=== PATIENT | male | born 1970 | race Caucasian/White ===

== ENCOUNTER → 2017-04-24 13:48 | Outpatient (CLI) | payer MEDICARE, SELFPAY ==
--- NOTE | 2017-04-24 13:52 | US_ITS ---
STUDY: SCROTUM ULTRASOUND REASON FOR EXAM: Male, 46 years old. Right pain and swelling TECHNIQUE: Ultrasound evaluation of the scrotum was performed with color Doppler and static carrillo-scale imaging. COMPARISON: None. FINDINGS: RIGHT TESTICLE INTRATESTICULAR: There is a normal size of the right testicle. The right testicle measures 4.8 x 2.8 x 2.3 cm. There is a homogenous echotexture. There is normal arterial and normal venous vascularity. There is no demonstrated right testicular mass or cyst. EXTRATESTICULAR: The epididymis is normal in size. There is normal vascularity of the epididymis. There is no demonstrated epididymal cystic structure. There is a right-sided hydrocele. There is no demonstrated varicocele. There is no demonstrated extratesticular mass or cyst. LEFT TESTICLE INTRATESTICULAR: There is a normal size of the left testicle. The left testicle measures 4.8 x 2.6 x 2.1 cm. There is a homogenous echotexture. There is normal arterial and normal venous vascularity. There is no demonstrated left testicular mass or cyst. EXTRATESTICULAR: The epididymis is normal in size. There is normal vascularity of the epididymis. There is no demonstrated epididymal cystic structure. There is no demonstrated hydrocele. There is no demonstrated varicocele. There is no demonstrated extratesticular mass or cyst. US/Testicular with Arterial Flow IMPRESSION: Right-sided hydrocele. Electronically Signed: Flores Cruz MD at 15:49 EST Tel , Service support ,
== END ==
PROVIDERS: Family Provider Family Medicine; PCP Family Medicine; Visit Provider Family Medicine
DX: N43.3 Hydrocele, unspecified (principal)
CPT/HCPCS: 76870; 93976

== ENCOUNTER → 2017-05-29 13:05 | Outpatient (CLI) | payer MEDICARE, SELFPAY ==
[2017-05-29 15:53] LABS: Absolute Lymphocyte Count 3.03 X10^3/ul (0.83-4.51); Absolute Neutrophil Count 6.8 X10^3/uL (2.0-7.7); Basophil# 0.05 X10^3/uL; Basophil% 0.4 % (0-1); Eosinophil# 0.83 X10^3/uL; Eosinophils% 7.2 % (0-5); Hematocrit 44.8 % (40-54); Hemoglobin 15.3 g/dl (13.0-16.5); Lymphocyte # 3.03 X10^3/ul (4.0); Lymphocyte % 26.4 % (19-41); Mean Corp Hgb Conc 34.2 g/gl (32-36); Mean Corpuscular Hgb 30.7 pg (27.0-32.0); Mean Corpuscular Volume 89.8 fL (80-94); Mean Platelet Vol. 11.2 fl (6.2-12.0); Monocyte# 0.74 X10^3/uL; Monocyte% 6.5 % (0-10); Neutrophil # 6.76 X10^3/uL (2.7-7.7); Platelet Count 311 K/mm3 (150-450); RBC Distribution Width CV 13.3 % (11.6-14.6); RBC Distribution Width SD 43.1 fl (35.1-43.9); Red Blood Count 4.99 M/mm3 (4.6-6.2); White Blood Count 11.5 K/mm3 (4.4-11.0)
[2017-05-29 16:01] LABS: POSITIVE COUNT NO; POSITIVE DIFFERENTIAL NO; POSITIVE MORPHOLOGY NO
[2017-05-29 16:06] LABS: Microalbumin:Creatinine Ratio 121.3 mg/g CRE (<30 mg/g CRE)
[2017-05-29 16:19] LABS: AST(SGOT) 28 U/L (15-37); Alanine Aminotransfer ALT/SGPT 56 U/L (16-61); Albumin, Serum 3.8 g/dL (3.2-5.0); Alkaline Phosphatase 59 U/L (45-117); Anion Gap 9 (5-15); BUN 11 mg/dL (7-18); BUN/Creat Ratio 10.3 RATIO (10-20); Calcium,Total 9.2 mg/dL (8.5-10.1); Chloride 104 mmol/L (98-107); Cholesterol 183 mg/dL (200); Creatinine, Serum 1.07 mg/dL (0.70-1.30); EST Glomerular Filtration Rate 79 mL/min (>60); Est Glom Filt Rate - Afr Amer 95 mL/min (>60); Globulin 3.8 g/dL (2.2-4.2); Glucose 158 mg/dL (74-106); Hemoglobin A1c 8.4 % (4.2-6.3); High Density Lipoprotein 32 mg/dL; Protein, Total 7.6 g/dL (6.4-8.2); Sodium Level 139 mmol/L (136-145); Triglycerides 241 mg/dL; Very Low Density Lipoprotein 48 mg/dL (5-40)
== END ==
PROVIDERS: Family Provider Family Medicine; PCP Family Medicine; Visit Provider Family Medicine
DX: E11.9 Type 2 diabetes mellitus without complications (principal); I25.10 Atherosclerotic heart disease of native coronary artery without angina pectoris; I10 Essential (primary) hypertension; E78.5 Hyperlipidemia, unspecified
CPT/HCPCS: 36415; 80053; 80061; 82043; 82570; 83036; 85025

== ENCOUNTER 2017-05-31 12:49 | Outpatient (RCR) | payer MEDICARE, SELFPAY | END 2017-06-03 23:59 | LOC: DC 12:49 | PROVIDERS: Family Provider Family Medicine; PCP Family Medicine; Visit Provider Family Medicine | DX: E11.9 Type 2 diabetes mellitus without complications (principal); E66.01 Morbid (severe) obesity due to excess calories; Z68.41 Body mass index [BMI] 40.0-44.9, adult; Z71.3 Dietary counseling and surveillance | CPT/HCPCS: G0108 ==

== ENCOUNTER 2017-06-06 15:37 | Outpatient (RCR) | payer MEDICARE, SELFPAY | END 2017-06-06 15:38 | LOC: DC 15:37 | PROVIDERS: Family Provider Family Medicine; PCP Family Medicine; Visit Provider Family Medicine | DX: E11.9 Type 2 diabetes mellitus without complications (principal); E66.01 Morbid (severe) obesity due to excess calories; Z68.41 Body mass index [BMI] 40.0-44.9, adult; Z71.3 Dietary counseling and surveillance | CPT/HCPCS: 97802 ==

== ENCOUNTER → 2017-07-10 13:39 | Outpatient (CLI) | payer MEDICARE, SELFPAY ==
--- NOTE | 2017-07-10 13:41 | CT_ITS ---
STUDY: CT CERVICAL SPINE WITH CONTRAST REASON FOR EXAM: Male, 46 years old. Degenerative disc disease. Previous cervical spine surgery. RADIATION DOSAGE (If Supplied By Facility): CTDIvol = ( 29.47 ) mGy, DLP = ( 590.41 ) mGycm TECHNIQUE: High resolution transaxial imaging was performed following intravenous administration of 100CC ml of Isovue 300 contrast material. Sagittal and coronal images were reconstructed. Individualized dose optimization techniques were used for this CT. COMPARISON: None FINDINGS: Normal craniovertebral junction. Normal anterior atlantoaxial articulation. Normal odontoid process. There is straightening of the normal cervical lordosis. Normal vertebral bodies and posterior osseous elements. C2-3: Normal endplates. Normal disc height and morphology. Normal central canal and intervertebral neuroforamina. C3-4: Normal endplates. Normal disc height and morphology. Normal central canal and intervertebral neuroforamina. Postsurgical fusion between C4, C5, and C6, with bony fusion across the disc spaces. Mild narrowing of the right neural foramina at these levels. Mild compromise of the spinal canal without definite compression of the cord. C6-7: Normal endplates. Normal disc height and morphology. Normal central canal and intervertebral neuroforamina. C7-T1: Normal endplates. Normal disc height and morphology. Normal central canal and intervertebral neuroforamina. Normal visualized soft tissue structures. CT/Spine Cervical WITH Contrast IMPRESSION: Postsurgical changes. Mild degenerative changes. No acute abnormalities. Electronically Signed: Aba Vanegas MD at 16:18 EDT , Service support ,
== END ==
PROVIDERS: Family Provider Family Medicine; PCP Family Medicine; Visit Provider Family Medicine
DX: M50.30 Other cervical disc degeneration, unspecified cervical region (principal); M54.12 Radiculopathy, cervical region
CPT/HCPCS: 72126; Q9967

== ENCOUNTER → 2017-09-26 13:07 | Outpatient (CLI) | payer MEDICARE, SELFPAY ==
--- NOTE | 2017-09-26 13:35 | MRI_ITS ---
STUDY: MRI RIGHT KNEE REASON FOR EXAM: Right knee pain, fall 4 months ago, arthroscopy more than 10 years ago. TECHNIQUE: Standardized fat and water weighted pulse sequences were obtained in all 3 orthogonal planes. COMPARISON: None. FINDINGS: There is a small subtle oblique band of signal in the posterior horn of the medial meniscus extending to the inferior articular surface (proton-density sagittal images 11-14), either scarring or small recurrent medial meniscal tear. Normal hyaline cartilage of the medial femorotibial compartment. Normal medial femoral condyle and tibial plateau. Normal medial collateral ligamentous complex (MCL). Normal distal semimembranosus, gracilis and semitendinosus tendons. Normal lateral meniscus. Normal hyaline cartilage of the lateral femorotibial compartment. Normal lateral femoral condyle and tibial plateau. Normal proximal tibiofibular articulation. Normal lateral collateral (fibular) ligament. Normal popliteus tendon. Normal biceps femoris tendon. Normal anterior cruciate ligament (ACL). Normal posterior cruciate ligament (PCL). Normal congruent patellofemoral articulation. Normal hyaline cartilage of the patellofemoral compartment. Normal medial and lateral patellar retinaculum. Normal visualized quadriceps tendon. Normal patellar tendon. Normal Hoffa's fat pad. There is no joint effusion. There is a popliteal cyst (T2 sagittal images 2-6) measuring 3.2 cm in length. The otherwise visualized osseous structures are unremarkable. MRI/Lower Ext Joint Only (Routine) IMPRESSION: Small subtle signal alteration of the posterior horn of the medial meniscus, either scarring or small recurrent medial meniscal tear. Popliteal cyst. No demonstrated lateral meniscal tear. Electronically Signed: Alfred Torrez MD at 15:14 EDT Tel , Service support ,
== END ==
PROVIDERS: Family Provider Family Medicine; PCP Family Medicine; Visit Provider Family Medicine
DX: S83.281A Other tear of lateral meniscus, current injury, right knee, initial encounter (principal); S83.529A Sprain of posterior cruciate ligament of unspecified knee, initial encounter; W19.XXXA Unspecified fall, initial encounter; M71.21 Synovial cyst of popliteal space [Baker], right knee
CPT/HCPCS: 73721

== ENCOUNTER → 2018-03-08 12:51 | Outpatient (CLI) | payer MEDICARE, SELFPAY ==
[2018-03-09 16:08] LABS: Microalbumin,Random Urine 74.4 mg/L (NO RANGE EST.); Microalbumin:Creatinine Ratio 51.7 mg/g CRE (<30 mg/g CRE)
[2018-03-09 16:21] LABS: Absolute Neutrophil Count 7.6 X10^3/uL (2.0-7.7); Basophil# 0.05 X10^3/uL; Basophil% 0.4 % (0-1); Eosinophil# 1.73 X10^3/uL; Eosinophils% 12.4 % (0-5); Hematocrit 46.1 % (40-54); Lymphocyte % 26.5 % (19-41); Mean Corp Hgb Conc 34.7 g/gl (32-36); Mean Corpuscular Hgb 30.9 pg (27.0-32.0); Mean Corpuscular Volume 89.2 fL (80-94); Mean Platelet Vol. 11.2 fl (6.2-12.0); Monocyte# 0.78 X10^3/uL; Monocyte% 5.6 % (0-10); Neutrophil # 7.64 X10^3/uL (2.7-7.7); Neutrophil % 54.7 % (47-70); Platelet Count 285 K/mm3 (150-450); RBC Distribution Width CV 13.4 % (11.6-14.6); Red Blood Count 5.17 M/mm3 (4.6-6.2)
[2018-03-09 16:24] LABS: AST(SGOT) 23 U/L (15-37); Alanine Aminotransfer ALT/SGPT 43 U/L (16-61); Albumin, Serum 3.8 g/dL (3.2-5.0); Alkaline Phosphatase 79 U/L (45-117); Anion Gap 11 (5-15); BUN 8 mg/dL (7-18); BUN/Creat Ratio 7.9 RATIO (10-20); Calcium,Total 8.8 mg/dL (8.5-10.1); Chloride 103 mmol/L (98-107); Creatinine, Serum 1.01 mg/dL (0.70-1.30); EST Glomerular Filtration Rate 84 mL/min (>60); Est Glom Filt Rate - Afr Amer 101 mL/min (>60); Globulin 3.7 g/dL (2.2-4.2); Glucose 230 mg/dL (74-106); Potassium 3.9 mmol/L (3.5-5.1); Protein, Total 7.5 g/dL (6.4-8.2); Sodium Level 137 mmol/L (136-145)
[2018-03-09 16:25] LABS: POSITIVE COUNT NO; POSITIVE DIFFERENTIAL NO; POSITIVE MORPHOLOGY NO
[2018-03-09 17:14] LABS: Hemoglobin A1c 8.8 % (4.2-6.3)
== END ==
PROVIDERS: Family Provider Family Medicine; PCP Family Medicine; Visit Provider Family Medicine
DX: E11.21 Type 2 diabetes mellitus with diabetic nephropathy (principal); I10 Essential (primary) hypertension; E78.5 Hyperlipidemia, unspecified; F11.90 Opioid use, unspecified, uncomplicated; Z51.81 Encounter for therapeutic drug level monitoring
CPT/HCPCS: 36415; 80053; 82043; 82570; 83036; 85025

== ENCOUNTER → 2018-03-16 13:33 | Outpatient (CLI) | payer MEDICARE, SELFPAY ==
[2018-03-20 09:09] LABS: Testosterone, Free 8.55 ng/dL (5.00-21.00)
[2018-03-22 09:24] LABS: Testosterone, % Free 2.43 % (1.50-4.20); Testosterone, Total 352 ng/dL (264-916)
== END ==
PROVIDERS: Family Provider Family Medicine; PCP Family Medicine; Visit Provider Family Medicine
DX: E29.1 Testicular hypofunction (principal)
CPT/HCPCS: 36415; 84402; 84403

== ENCOUNTER → 2018-10-12 06:36 | Outpatient (CLI) | payer MEDICARE, SELFPAY ==
--- NOTE | 2018-10-12 09:07 | STRESSREP ---
Stress Test Report Date: 10-12-18 Procedure: Pharmacologic stress nuclear imaging study Indications: Shortness of breath/dyspnea Consent: Per the patient Procedure: The patient underwent pharmacologic (Regadenoson) evaluation with a peak heart rate of 87 beats per minute (50 %predicted maximal heart rate) and a peak blood pressure of 178/90 mmHg. The baseline ECG demonstrated normal sinus rhythm. The peak pharmacologic ECG demonstrated no obvious ECG changes. There were no cardiac dysrhythmias pretest, during pharmacologic infusion, or recovery. There was no complaint of chest discomfort during pharmacologic infusion or recovery. The examination was discontinued secondary to completion of protocol. Impression: 1. Pharmacologic (Regadenoson) evaluation 2. Peak pharmacologic ECG with no obvious ECG changes. 3. There were no cardiac dysrhythmias pretest, during pharmacologic infusion, or recovery. 4. Nuclear images pending Myocardial perfusion imaging study: Technique: The patient was injected with 15.0 millicuries of technetium 99m Cardiolite and subsequently rest SPECT Cardiolite nuclear imaging was obtained in the horizontal long, vertical long, and short axis views. The patient underwent pharmacologic (Regadenoson) evaluation with a peak heart rate of 87 beats per minute (50 % percent predicted maximal heart rate) and a peak blood pressure of 178/90 mmHg. The patient was injected with 45.0 millicuries of technetium 99m Cardiolite and subsequently stress SPECT Cardiolite nuclear imaging was obtained in the horizontal long, vertical long, and short axis views. A gated Cardiolite study at peak stress was obtained. Interpretation: Rest and stress SPECT Cardiolite nuclear imaging status post realignment and normalization (attenuation correction not performed) demonstrate relative uniform tracer uptake and myocardial perfusion appearing within normal limits. There is end systolic thickening and brightening. The gated Cardiolite study demonstrates myocardial thickening and inward wall motion. The reported LVEF is 64 %. Impression: 1. Rest and stress SPECT Cardiolite nuclear imaging demonstrate relative uniform tracer uptake and myocardial perfusion appearing within normal limits. 2. The gated Cardiolite study reports an LVEF of 64 %. This note was generated with hoohbe software. It may contain incorrect words, spelling, and punctuation that were not noted in checking the note before signing.
== END ==
PROVIDERS: Family Provider Family Medicine; PCP Family Medicine; Referring Provider Family Medicine; Visit Provider Family Medicine
DX: R07.89 Other chest pain (principal); E11.9 Type 2 diabetes mellitus without complications; I10 Essential (primary) hypertension; E78.5 Hyperlipidemia, unspecified; I25.10 Atherosclerotic heart disease of native coronary artery without angina pectoris; E66.01 Morbid (severe) obesity due to excess calories
CPT/HCPCS: 78452; 93017; A9500; A4216; J2785

== ENCOUNTER → 2018-12-28 12:52 | Outpatient (CLI) | payer MEDICARE, SELFPAY | PROVIDERS: Family Provider Family Medicine; PCP Family Medicine; Visit Provider Family Medicine | DX: R73.9 Hyperglycemia, unspecified (principal) | CPT/HCPCS: 36415 ==

== ENCOUNTER → 2019-01-04 09:47 | Outpatient (CLI) | payer MEDICARE, SELFPAY ==
--- NOTE | 2019-01-04 09:53 | US_ITS ---
STUDY: ABDOMINAL ULTRASOUND - RIGHT UPPER QUADRANT REASON FOR VISIT: Male, 48 years old hyperglycemia. TECHNIQUE: Ultrasound evaluation of the right upper quadrant was performed with real-time and static carrillo-scale imaging. TECHNICAL QUALITY: Limited. Examination limited due to obesity. COMPARISON: None. FINDINGS: Liver: The liver measures 18.6 cm. There is increased echogenicity consistent with fatty infiltration. The bile ducts are within normal limits. There is hepatic color flow. The direction of portal flow is hepatopetal. There is no demonstrated mass lesion. Gallbladder: The patient is status post cholecystectomy. Common Bile Duct (C.B.D.): The common bile duct measures 3.3 mm. Pancreas: Normal size of the head, body and tail of the pancreas. There is increased echogenicity of the pancreas. There is no demonstrated pancreatic mass or cyst. Right Kidney: Normal size of the right kidney. The right kidney measures 12.8 cm x 6.6 cm x 5 cm. Normal renal cortex. The right cortex measures 1.6 cm. There is no demonstrated renal mass or cyst. There is no right hydronephrosis. US/Abdomen Limited IMPRESSION: Mild hepatomegaly and diffuse fatty infiltration of the liver. Electronically Signed: David Pritchett, at 15:18 EDT , Service support ,
== END ==
PROVIDERS: Family Provider Family Medicine; PCP Family Medicine; Referring Provider Family Medicine; Visit Provider Family Medicine
DX: K76.0 Fatty (change of) liver, not elsewhere classified (principal); R10.9 Unspecified abdominal pain; R73.9 Hyperglycemia, unspecified
CPT/HCPCS: 76705

== ENCOUNTER → 2019-03-18 13:57 | Outpatient (CLI) | payer MEDICARE, SELFPAY ==
[2019-03-18 15:25] LABS: Absolute Lymphocyte Count 3.34 X10^3/uL (0.83-4.51); Absolute Neutrophil Count 8.3 X10^3/uL (2.0-7.7); Basophil% 0.7 % (0-1); Eosinophil# 1.28 X10^3/uL; Eosinophils% 9.2 % (0-5); Hematocrit 46.4 % (40-54); Hemoglobin 15.5 g/dL (13.0-16.5); Lymphocyte # 3.34 X10^3/ul (4.0); Mean Corp Hgb Conc 33.4 g/dL (32-36); Mean Corpuscular Hgb 29.7 pg (27.0-32.0); Mean Corpuscular Volume 88.9 fL (80-94); Mean Platelet Vol. 11.5 fl (6.2-12.0); Monocyte# 0.83 X10^3/uL; NRBC Flagged by Analyzer 0 % (0-5); Neutrophil # 8.27 X10^3/uL (2.7-7.7); Neutrophil % 59.5 % (47-70); Platelet Count 280 K/mm3 (150-450); RBC Distribution Width CV 13.1 % (11.6-14.6); RBC Distribution Width SD 42.4 fl (35.1-43.9); Red Blood Count 5.22 M/mm3 (4.6-6.2); White Blood Count 13.9 K/mm3 (4.4-11.0)
[2019-03-18 16:03] LABS: AST(SGOT) 31 U/L (15-37); Alanine Aminotransfer ALT/SGPT 46 U/L (16-61); Albumin, Serum 3.8 g/dL (3.2-5.0); Alkaline Phosphatase 65 U/L (45-117); Anion Gap 4 (5-15); BUN 6 mg/dL (7-18); BUN/Creat Ratio 6.3 RATIO (10-20); Calcium,Total 9.1 mg/dL (8.5-10.1); Chloride 108 mmol/L (98-107); Cholesterol 204 mg/dL (200); Creatinine, Serum 0.95 mg/dL (0.70-1.30); EST Glomerular Filtration Rate 89 mL/min (>60); Est Glom Filt Rate - Afr Amer 108 mL/min (>60); Globulin 3.8 g/dL (2.2-4.2); Glucose 179 mg/dL (74-106); High Density Lipoprotein 30 mg/dL; Potassium 3.8 mmol/L (3.5-5.1); Protein, Total 7.6 g/dL (6.4-8.2); Sodium Level 137 mmol/L (136-145); Triglycerides 240 mg/dL; Very Low Density Lipoprotein 48 mg/dL (5-40)
[2019-03-18 16:16] LABS: Microalbumin:Creatinine Ratio 94.9 mg/g CRE (<30 mg/g CRE)
== END ==
PROVIDERS: Family Provider Family Medicine; PCP Family Medicine; Visit Provider Family Medicine
DX: E11.21 Type 2 diabetes mellitus with diabetic nephropathy (principal); I25.10 Atherosclerotic heart disease of native coronary artery without angina pectoris; Z51.81 Encounter for therapeutic drug level monitoring
CPT/HCPCS: 36415; 80053; 80061; 82043; 82570; 83036; 85025

== ENCOUNTER → 2019-04-03 15:17 | Outpatient (CLI) | payer MEDICARE, SELFPAY ==
--- NOTE | 2019-04-03 15:34 | MRI_ITS ---
STUDY: MRI CERVICAL SPINE WITHOUT CONTRAST REASON FOR EXAM: Male, 48 years old. RT NEURAL IMPINGEMENT, RADICULOPATHY, C/O PAIN AND TIGHTNESS BILATERAL SHOULDERS TECHNIQUE: Standardized fat and water weighted pulse sequences were obtained in the sagittal and axial planes. COMPARISON: July 10, 2017 FINDINGS: Normal foramen magnum and brainstem-cervical cord junction. Normal craniovertebral junction. Normal anterior atlantoaxial articulation. Normal odontoid process. Normal cervical lordosis. Normal vertebral bodies and posterior osseous elements. C2-3: Normal endplates. Normal disc height, signal and morphology. Normal central canal and intervertebral neural foramina. C3-4: Normal endplates. Normal disc height, signal and morphology. Normal central canal and intervertebral neural foramina. Small posterior disc marginal osteophyte encroaches upon the cord. C4-5: Anterior plate screws and disc spacer. Moderate narrowing of the neural foramen on the right. Central canal left neural foramen patent. C5-6: Anterior plate and screws with disc spacer. Moderate narrowing of the neural foramina bilaterally. Central canal patent. C6-7: Small broad-based posterior disc marginal osteophyte. Severe narrowing left neural foramen due to uncinate spondylosis. Central canal and right neural foramen patent. C7-T1: Normal endplates. Normal disc height, signal and morphology. Normal central canal and intervertebral neural foramina. Normal cervical cord. Normal visualized soft tissue structures. MRI/Spine Cervical (Routine) IMPRESSION: Anterior cervical disc fusion C4-5 and 6. Multilevel neural foraminal narrowing as noted above. Electronically Signed: Eb Daniels MD at 23:58 EST , Service support ,
== END ==
PROVIDERS: Family Provider Family Medicine; PCP Family Medicine; Referring Provider Family Medicine; Visit Provider Family Medicine
DX: M54.12 Radiculopathy, cervical region (principal); M50.30 Other cervical disc degeneration, unspecified cervical region
CPT/HCPCS: 72141

== ENCOUNTER → 2019-09-06 12:34 | Outpatient (CLI) | payer MEDICARE, SELFPAY ==
--- NOTE | 2019-09-06 13:04 | RAD_ITS ---
STUDY: X-RAY - LUMBAR SPINE REASON FOR EXAM: Male, 48 years old. FELL/RT FOOT DROP/PREV LUMBAR FUSION TECHNIQUE: 3 view(s) of the lumbar spine were obtained. COMPARISON: None FINDINGS: Normal lumbar lordosis. There is no substantial scoliosis. There is a normal alignment of the vertebrae. The patient is status post anterior and posterior spinal fusion at the L2-3 level with placement of an intervertebral disc cage device as well as posterior internal fixation rods and pedicle screws. Hardware appears to be intact without evidence for loosening. There is no visualized continuous bone growth across the disc space. There is a laminectomy defect at the L2 level. There is a posterior interspinous spacer device at the L1-2 level. Disc space heights are intact at the nonfused levels. There are multilevel degenerative changes of the facet joints. There is atherosclerotic calcification of the abdominal aorta without a demonstrated aneurysm. RAD/Lumbar Spine 2 or 3 Views IMPRESSION: Intact fixation hardware, as above. No visualized bone growth the L2-3 disc space to indicate successful fusion at this time. Mild multilevel degenerative changes of facet joints. Electronically Signed: Gil Muñoz MD at 7:53 EDT , Service support ,
== END ==
PROVIDERS: PCP Family Medicine; Visit Provider Family Medicine
DX: M21.371 Foot drop, right foot (principal)
CPT/HCPCS: 72100

== ENCOUNTER → 2019-09-25 13:41 | Outpatient (CLI) | payer MEDICARE, MEDICAID, SELFPAY ==
--- NOTE | 2019-09-25 13:45 | ART_ITS ---
Reason For Study: RLE PAIN (5TH TOE & GREAT TOE DISCOLORED) Procedure A bilateral lower extremity continuous wave Doppler with analog waveform analysis,segmental pressures,and ankle brachial indexes without exercise. Left Segmental Pressures Left brachial= 157mmHg. Left posterior tibial artery = 172mmHg. Left dorsalis pedis artery = 154mmHg. Left digit = 210 mmHg. The left posterior tibial artery waveforms are triphasic. The left dorsalis pedis waveforms are triphasic. Right Segmental Pressures Right brachial= 138mmHg. Right thigh = 165mmHg. Right calf = 85mmHg. Right posterior tibial artery = 88mmHg. Right dorsalis pedis artery = 99mmHg. Right digit = 94 mmHg. The right posterior tibial artery waveforms are monophasic. The right dorsalis pedis waveforms are monophasic. Indices The right resting ankle brachial index is 0.63. The right ankle brachial index by the dorsalis pedis is 0.63. The right ankle brachial index by the posterior tibial artery is 0.56. The right digital- brachial index is 0.60. The left resting ankle brachial index is 1.10. The left ankle brachial index by the dorsalis pedis is 0.98. The left ankle brachial index by the posterior tibial artery is 1.10. The left digital-brachial index is 1.34. Interpretation Summary Moderately severe right lower extremity arterial occlusive disease based upon ankle-brachial indices. Right posterior tibial and dorsalis pedis monophasic Doppler waveforms consistent with a more severe level disease. Indices and waveform findings would suggest severe disease/occlusion of the superficial femoral artery Normal resting left PT and DP ankle-brachial indices. Normal left lower extremity triphasic posterior tibial and dorsalis pedis Doppler waveforms Ordering Physician: Trell Frank Referring Physician: Trell Frank Performed By: Ev Saunders RVT, RDCS and Student
== END ==
PROVIDERS: PCP Family Medicine; Referring Provider Family Medicine; Visit Provider Family Medicine
DX: I96 Gangrene, not elsewhere classified (principal)
CPT/HCPCS: 93923

== ENCOUNTER → 2019-10-11 09:25 | Outpatient (CLI) | payer MEDICARE, MEDICAID, SELFPAY ==
--- NOTE | 2019-10-11 09:33 | ADUL_ITS ---
Reason For Study: ATHEROSCLEROSIS Right Velocities Ext. Iliac Artery, dist = 168.1 cm./sec. Common Femoral Artery, mid = 144.0 cm./sec. Supf Femoral Artery, prox = 95.3 cm./sec. Supf Femoral Artery, mid = 42.4 cm./sec. Supf Femoral Artery, mid to distal = 353.7 cm./sec. Supf Femoral Artery, dist. = 33.9 cm./sec. Profunda Femoral Artery = 84.3 cm./sec. Popliteal Artery, prox. = 31.7 cm./sec. Popliteal Artery, mid = 33.7 cm./sec. Popliteal Artery, dist = 30.2 cm./sec. Post. Tibial Artery, prox = 44.4 cm./sec. Post. Tibial Artery, mid = 33.9 cm./sec. Post. Tibial Artery, dist = 43.5 cm./sec. Peroneal Artery, prox = 16.1 cm./sec. Peroneal Artery, mid = 33.2 cm./sec. Peroneal Artery,dist = 14.5 cm./sec. Ant. Tibial Artery, prox = 41.2 cm./sec. Ant. Tibial Artery, mid = 36.2 cm./sec. Ant. Tibial Artery, dist = 42.6 cm./sec. Procedure The exam was diagnostic. Exam performed in department. Interpretation Summary Right femoral artery with a severe stenosis. Ordering Physician: Wyatt Castillo Referring Physician: Hilario Garcia Performed By: Ev Saunders, RDCS, RVT
--- NOTE | 2019-10-11 09:34 | ART_ITS ---
Reason For Study: ATHEROSCLEROSIS Procedure A bilateral lower extremity continuous wave Doppler with analog waveform analysis and ankle brachial indexes. Left Segmental Pressures Left brachial= 171mmHg. Left posterior tibial artery = 189mmHg. Left dorsalis pedis artery = 155mmHg. Left digit = >255 mmHg. The left posterior tibial artery waveforms are triphasic. The left dorsalis pedis waveforms are triphasic. Right Segmental Pressures Right brachial= 159mmHg. Right posterior tibial artery = 117mmHg. Right dorsalis pedis artery = 113mmHg. Right digit = 45 mmHg. The right posterior tibial artery waveforms are monophasic. The right dorsalis pedis waveforms are monophasic. Indices The right ankle brachial index by the dorsalis pedis is 0.66. The right ankle brachial index by the posterior tibial artery is 0.68. The right digital-brachial index is 0.26. The left ankle brachial index by the dorsalis pedis is 1.11. The left ankle brachial index by the posterior tibial artery is 0.91. The left digital-brachial index is N/C. Interpretation Summary Right leg monophic and moderate disease with ROBERTO 0.68 and left normal triphasic with ROBERTO 1.11. Right DBI 0.26 and left NC. Ordering Physician: Wyatt Castillo Referring Physician: Wyatt Castillo Performed By: Ev Saunders RVT, RDCS
== END ==
PROVIDERS: PCP Family Medicine; Referring Provider Surgery Vascular Surgery; Visit Provider Surgery Vascular Surgery
DX: I70.235 Atherosclerosis of native arteries of right leg with ulceration of other part of foot (principal); I70.213 Atherosclerosis of native arteries of extremities with intermittent claudication, bilateral legs; E78.00 Pure hypercholesterolemia, unspecified; I11.9 Hypertensive heart disease without heart failure; I20.9 Angina pectoris, unspecified; E11.9 Type 2 diabetes mellitus without complications; J45.909 Unspecified asthma, uncomplicated; M19.90 Unspecified osteoarthritis, unspecified site
CPT/HCPCS: 93922; 93926

== ENCOUNTER 2019-11-20 06:27 | Day surgery (SDC) | payer MEDICARE, MEDICAID, SELFPAY ==
[2019-11-20 06:39] LABS: Hematocrit 46.5 % (40-54); Hemoglobin 15.7 g/dL (13.0-16.5); Mean Corp Hgb Conc 33.8 g/dL (32-36); Mean Corpuscular Hgb 30.5 pg (27.0-32.0); Mean Corpuscular Volume 90.3 fL (80-94); Platelet Count 284 K/mm3 (150-450); RBC Distribution Width CV 13.4 % (11.6-14.6); RBC Distribution Width SD 44.1 fl (35.1-43.9); Red Blood Count 5.15 M/mm3 (4.6-6.2); White Blood Count 16.4 K/mm3 (4.4-11.0)
[2019-11-20 06:53] LABS: Albumin, Serum 3.6 g/dL (3.2-5.0); BUN 9 mg/dL (7-18); BUN/Creat Ratio 8.3 RATIO (10-20); Calcium,Total 9.4 mg/dL (8.5-10.1); Chloride 107 mmol/L (98-107); Creatinine, Serum 1.08 mg/dL (0.70-1.30); EST Glomerular Filtration Rate 77 mL/min (>60); Est Glom Filt Rate - Afr Amer 93 mL/min (>60); Estimated Creatinine Clearance 137.55 ml/min; Glucose 303 mg/dL (74-106); Phosphorus 4.1 mg/dL (2.5-4.9); Sodium Level 138 mmol/L (136-145)
--- NOTE | 2019-11-20 08:45 | PCM.OPRPT ---
Problem List (1) PAD (peripheral artery disease) Status: Acute Report of Operation Date of Procedure: 11/20/19 Pre-Operative Diagnosis: PAD with right femoral stenosis Post-Operative Diagnosis: Same Surgery/Procedure Performed:: 1. Left ultrasound-guided access common femoral artery. 2. Right lower extremity angiogram with catheter placed into the popliteal artery. 3. Balloon angioplasty right adductor with a 5 drug-coated balloon and then stented with a 6 x 60 stent and post balloon with a 5 mm balloon. 4. Closure with Star close Type of Anesthesia:: Sedation,Conscious Description of Procedure: Patient brought to the [employer] [facility]. Underwent appropriate timeout consent. Underwent sedation. Prepped and draped in a sterile fashion. We did ultrasound-guided access retrograde retrograde left common femoral artery. Put a Glidewire up in a 5 Macedonian sheath. A 5000 units of heparin. We got up and over the bifurcation did an angiogram from the right external iliac artery. We then put a wire and catheter down the leg and did an angiogram from there. These both showed that the common femoral artery, the profunda, and the femoral artery were widely patent. The distal femoral at the adductor into the popliteal with a severe stenosis over 90%. The rest of the popliteal and all 3 tibials were patent into the foot. We got a Glidewire across the lesion and brought in a longer 6 Macedonian sheath. We first ballooned this with a 5 x 60 drug-coated balloon but there is a dissection and appear to be a little flow-limiting. We then ballooned a little further up with a 5 x 120 balloon not over inflating but still some limited flow through this area. We elected to stent with a 6 x 60 mm post balloon with a 5 mm balloon. Is much improved with brisk flow through here. We then removed out the sheath deployed a Star close with good hemostasis brought to recovery stable condition. Sedation: This 49-year-old gentleman underwent moderate sedation given by Dr. Wyatt Castillo. He was monitored EKG blood pressure and pulse ox for over the 30 minutes of the procedure. See the EMR for the complete record.
== END 2019-11-20 12:55 | disposition home or self-care (01) ==
PROVIDERS: PCP Family Medicine; Referring Provider Surgery Vascular Surgery; Visit Provider Surgery Vascular Surgery
DX: I70.235 Atherosclerosis of native arteries of right leg with ulceration of other part of foot (principal); I70.213 Atherosclerosis of native arteries of extremities with intermittent claudication, bilateral legs; I11.9 Hypertensive heart disease without heart failure; I20.9 Angina pectoris, unspecified; E78.00 Pure hypercholesterolemia, unspecified; E11.51 Type 2 diabetes mellitus with diabetic peripheral angiopathy without gangrene; J45.909 Unspecified asthma, uncomplicated; M19.90 Unspecified osteoarthritis, unspecified site; Z79.4 Long term (current) use of insulin; Z79.899 Other long term (current) drug therapy; Z87.891 Personal history of nicotine dependence
CPT/HCPCS: 36245; 36415; 37226; 75710; 76937; 80069; 85027; 99152; 99153; J7040; Q9967; C1725; C1760; C1769; C1876; C1887; C1894

== ENCOUNTER → 2020-09-10 12:35 | Outpatient (CLI) | payer MEDICARE, MEDICAID, SELFPAY ==
[2020-09-10 13:39] LABS: Absolute Lymphocyte Count 3.56 X10^3/uL (0.83-4.51); Absolute Neutrophil Count 6.2 X10^3/uL (2.0-7.7); Basophil# 0.07 X10^3/uL; Basophil% 0.6 % (0-1); Eosinophil# 0.91 X10^3/uL; Hematocrit 48.4 % (40-54); Hemoglobin 15.8 g/dL (13.0-16.5); Lymphocyte # 3.56 X10^3/ul (0.83-4.51); Lymphocyte % 31.1 % (19-41); Mean Corp Hgb Conc 32.6 g/dL (32-36); Mean Corpuscular Hgb 29.5 pg (27.0-32.0); Mean Corpuscular Volume 90.5 fL (80-94); Mean Platelet Vol. 10.6 fl (6.2-12.0); Monocyte# 0.69 X10^3/uL; NRBC Flagged by Analyzer 0 % (0-5); Neutrophil # 6.15 X10^3/uL (2.7-7.7); Neutrophil % 53.9 % (47-70); Platelet Count 312 K/mm3 (150-450); RBC Distribution Width CV 14.3 % (11.6-14.6); RBC Distribution Width SD 47.3 fl (35.1-43.9); Red Blood Count 5.35 M/mm3 (4.6-6.2); White Blood Count 11.4 K/mm3 (4.4-11.0)
[2020-09-10 14:01] LABS: Microalbumin,Random Urine 35.7 mg/L (NO RANGE EST.); Microalbumin:Creatinine Ratio 74.4 mg/g CRE (<30 mg/g CRE)
[2020-09-10 14:05] LABS: ALB/GLOB Ratio 1.1 RATIO (0.9-2.4); AST(SGOT) 17 U/L (15-37); Alanine Aminotransfer ALT/SGPT 30 U/L (16-61); Albumin, Serum 3.7 g/dL (3.2-5.0); Alkaline Phosphatase 59 U/L (45-117); Anion Gap 8 (5-15); BUN 7 mg/dL (7-18); BUN/Creat Ratio 6.6 RATIO (10-20); Calcium,Total 8.6 mg/dL (8.5-10.1); Chloride 105 mmol/L (98-107); Cholesterol 142 mg/dL (200); Creatinine, Serum 1.06 mg/dL (0.70-1.30); EST Glomerular Filtration Rate 78 mL/min (>60); Est Glom Filt Rate - Afr Amer 95 mL/min (>60); Globulin 3.5 g/dL (2.2-4.2); Glucose 189 mg/dL (74-106); High Density Lipoprotein 28 mg/dL; Protein, Total 7.2 g/dL (6.4-8.2); Sodium Level 139 mmol/L (136-145); Triglycerides 192 mg/dL; Very Low Density Lipoprotein 38 mg/dL (5-40)
[2020-09-10 14:21] LABS: Hemoglobin A1c 7.6 % (3.8-5.6)
== END ==
PROVIDERS: PCP Family Medicine; Referring Provider Family Medicine; Visit Provider Family Medicine
DX: E11.21 Type 2 diabetes mellitus with diabetic nephropathy (principal); I25.10 Atherosclerotic heart disease of native coronary artery without angina pectoris; E78.5 Hyperlipidemia, unspecified; I10 Essential (primary) hypertension
CPT/HCPCS: 36415; 80053; 80061; 82043; 82570; 83036; 85025

== ENCOUNTER 2020-10-15 10:17 | Day surgery (SDC) | payer MEDICARE, MEDICAID, SELFPAY ==
[2020-10-15] VITALS (7 sets, daily range): BP systolic 139–153; BP diastolic 86–96; PULSE 57–83; RESP 16–18; TEMP 36.1–36.4; O2SAT 95–97; BMI 35.6
--- NOTE | 2020-10-15 10:58 | HP.PCM_ITS ---
History and Physical Date of Admission: 10/15/20 Date of Service: 10/07/20 Intake Vital Signs 10/07/20 13:39 10/07/20 13:42 Height 5 ft 10 in Weight: 248 lb BMI 35.6 0.2 BP 177/99 H Blood Pressure Location Rt brachial Position Sitting Respiration 18 Intake Visit Reasons: CSCOPE Chief Complaint: c-scope Sorority Mother Required: No Is patient in pain?: No Allergies No Known Allergies Allergy (Verified 10/07/20 13:40) [facility] Medical History (Updated 10/07/20 @ 14:[address] Monae Mcmahon MD) Cervical radiculopathy Chronic pain syndrome COPD (chronic obstructive pulmonary disease) Coronary arteriosclerosis Degeneration of cervical intervertebral disc Depression Failed back syndrome, lumbar HTN (hypertension) Hyperlipidemia Low testosterone Morbid obesity Myocardial infarction ARAM (obstructive sleep apnea) Osteoarthritis of right knee Pulmonary nodules Right hydrocele S/P arteriogram of extremity Tobacco use Type 2 diabetes mellitus with diabetic neuropathy Surgical History H/O neck surgery Previous back surgery Family History Father Heart disease Hypertension Hyperlipidemia Social History Smoking Status: Current every day smoker HPI HPI HPI: ENRIQUETA CASTELLANOS, is a 50 M who presents to the office today for colonoscopy due to bright red blood per rectum. Patient states he had this about a month ago for 2 to 3 days. Patient states that was red denies any black stools. Denies any history of previous episodes. Patient states his stool is soft denies any constipation. Patient does not know his family history. Patient denies any pain with bowel movements. Patient deferred KHANG at PCPs office thus he was referred for colonoscopy, no previous colonoscopy. ROS General General: Yes weight change; No appetite, fatigue, colon cancer, breast cancer or weakness HEENT HEENT: No difficulty swallowing, eye injury, eye surgery, swollen glands or hoarseness Endo Endocrine: Yes diabetes mellitus; No thyroid disease, thyroid cancer, Hair loss, heat intolerance or cold intolerance Skin Skin: No rash or changing moles Breast Breast: No left breast lump, right breast lump, nipple discharge, breast pain, abnormal mammogram, abnormal US or breast enlargement Musc Musculoskeletal: Yes back problems; No arthritis, rheumatoid arthritis, gout or joint pain Cardio Cardiovascular: Yes high blood pressure; No murmur, pacemaker, heart disease, atrial fibrillation, heart attack, heart stent, palpitations, shortness of breat with exertion or chest pain Psych Psychiatric: No depression, anxiety or hearing voices Resp Respiratory: No shortness of breath, Yes sleep apnea, No cough, No COPD, Yes asthma, No emphysema and No wheezing Gastro Gastrointestinal: No abdominal pain, No nausea or vomiting, No diarrhea, No constipation, Yes blood in stool, Yes acid reflux, No hemorrhoids, No ulcers, Yes gallbladder problem and No black,tarry stools Ceferino Hematologic: Yes blood thinners, No blood disorders, Yes bleeding, No anemia and Yes blood clots Neuro Neurologic: No system reviewed and no additional complaints, except as documented, No as per HPI, No abnormal gait, No abnormal hearing, No abnormal movements, No abnormal speech, No behavioral changes, No burning sensations, No confusion, No convulsions, No disequilibrium, No dizziness, No localized weakness, No frequent falls, No headache(s), No lack of coordination, No loss of vision, No memory loss, No numbness, No other visual disturbances, No radicular pain, No restless legs, No sensory deficit, No syncope, No tingling, No tremor(s), No weakness and No other Exam Const General: cooperative, healthy appearing, comfortable and no acute distress Neck Neck: normal visual inspection Resp Effort & Inspection: normal respiratory effort Cardio Rate: regular rate GI Inspection: non-distended Palpation: soft, no guarding and nontender Rectal Exam: deferred Skin General: no rashes or lesions noted Neuro General: patient oriented x3 Psych Affect: normal affect COVID (Procedure Consent) Procedure Criteria Procedure Criteria: Yes Elective The surgeon/proceduralist and patient have discussed in detail the risk of exposure to and/or potential harm posed by the COVID-19 virus with having a surgery/procedure at this time versus the risk of delaying the surgery/procedure. It is not possible to know either the risk of delaying the surgery or procedure or chance of getting an infection with perfect accuracy, but a joint decision was made between the patient and the surgeon/proceduralist to proceed at this time with the scheduled surgery/procedure as indicated on the consent form. Assessment and Plan Assessment and Plan (1) BRBPR (bright red blood per rectum): Status: Acute (2) PAD (peripheral artery disease): Status: Acute Plan - Dr. Monae Mcmahon MD: We will keep patient on his Plavix as he just had a right leg stent placed about 7 or 8 months ago I have discussed the above with the patient. I have offered the patient colonoscopy for evaluation. I have explained the risks/benefits of the procedure and described the procedure. I have discussed the risks with the patient, including but not limited to: infection, bleeding, perforation of the GI tract requiring emergency surgery, inability to complete the procedure, injury to any internal organs, complications of anesthesia, etc. - the patient understands and agrees to proceed. I have answered all the patient's questions to the patient's satisfaction and the patient has no further questions. The patient has been given instructions for the colon cleansing preparation. 1 day of clears, MiraLAX Dulcolax split prep. Monae Mcmahon M.D. Pager: [phone] [facility] [address] [place] [address], [address] [place] [address] Office: [phone] Plan Details Other Orders: Orders: Colonoscopy Today Coding Level of Care Code Off vis,new,level 3 Diagnoses BRBPR (bright red blood per rectum) K62.5 PAD (peripheral artery disease) I73.9 10/07/20 1411<Electronically signed by Monae Mcmahon MD>Date Monae Mcmahon MD
[2020-10-15] MEDS: Lactated Ringers 1,000 ML 100 ML IV (11:00)
--- NOTE | 2020-10-15 12:00 | COLBX_PTH ---
PATIENT: ENRIQUETA CASTELLANOS Jr. LOC: EN U#:[id number] AGE/SX: 50/M ROOM: RE10/15/[address]: Dr. Monae Mcmahon MD : 1970 BED: DIS: 10/15/2020 SPEC #: [id number] RECD: 10/15/20 15:08 STATUS: KASEY REMalik #: [id number] FAMILIA: 10/15/20 12:[address]: Monae Mcmahon DEPT: SURGICAL PATHOLOGY RECD BY: Iker Brooks ENTERED: 10/16/20 08:47 SP TYPE: COLON BX OTHR DR: Dr. Hilario Garcia DO Tissues: A - Descending colon B - Sigmoid colon biopsy C - Rectum, NOS Procedures: Surgery Specimen Level IV HEADER OPERATION: Colonoscopy (MAC) PRE-OP DIAGNOSIS: Bright red blood per rectum TISSUE SUBMITTED: A - Descending polyps biopsy x3, B - Sigmoid polyps biopsy x2, C - Rectal polyp biopsy MICROSCOPIC DIAGNOSIS A. Descending colon polyps x3, biopsy: Fragments of tubular adenoma. B. Sigmoid polyps x2, biopsy: Hyperplastic polyp. C. Rectal polyp, biopsy: Fragments of hyperplastic polyp. SHERLEY:sanjuana 10/19/2020 MICROSCOPIC DESCRIPTION Slides are reviewed. GROSS DESCRIPTION A - Received in fixative is one container labeled with the patient's name and designated descending colon polyp. The specimen consists of multiple irregular fragments of light perez soft tissue that in aggregate measure 2 x 0.5 x 0.1 cm. The specimen is totally submitted in one cassette. B - Received in fixative is one container labeled with the patient's name and designated sigmoid polyp biopsy. The specimen consists of two irregular fragments of light perez soft tissue that in aggregate measure 0.7 x 0.5 x 0.2 cm. The specimen is totally submitted in one cassette. C - Received in fixative is one container labeled with the patient's name and designated rectal polyp biopsy. The specimen consists of two irregular fragments of light perez soft tissue that in aggregate measure 0.7 x 0.3 x 0.1 cm. The specimen is totally submitted in one cassette. / AM:sanjuana 10/16/20 TC:1 CPT: 52690 x3
[2020-10-15 12:06] LABS: Bedside Glucose 138 mg/dL (70-110)
--- NOTE | 2020-10-19 09:50 | OP.COLON_ITS ---
Patient Name: Damon Abad Procedure Date: 10/15/2020 1:27 PM Date of : 1970 Age: 50 Procedure: Colonoscopy Indications: Rectal bleeding Providers: Monae Mcmahon MD Referring MD: Hilario Garcia Medicines: Monitored Anesthesia Care Patient Profile: This is a 50 year old male. Last Colonoscopy: none. The patient's first colonoscopy is today. Complications: No immediate complications. Procedure: Pre-Anesthesia Assessment: - Prior to the procedure, a History and Physical was performed, and patient medications and allergies were reviewed. The patient's tolerance of previous anesthesia was also reviewed. The risks and benefits of the procedure and the sedation options and risks were discussed with the patient. All questions were answered, and informed consent was obtained. Prior Anticoagulants: The patient has taken no previous anticoagulant or antiplatelet agents. ASA Grade Assessment: Per anesthesia. After reviewing the risks and benefits, the patient was deemed in satisfactory condition to undergo the procedure. After I obtained informed consent, the scope was passed under direct vision. Throughout the procedure, the patient's blood pressure, pulse, and oxygen saturations were monitored continuously. The colonoscope was introduced through the anus and advanced to the cecum, identified by the appendiceal orifice, ileocecal valve and palpation. The colonoscopy was performed without difficulty. The patient tolerated the procedure well. The quality of the bowel preparation was adequate to identify polyps. The quality of the bowel preparation was good after lavage and suctioning of 900 cc of dark green fluid. Scope In: 1:32:19 PM Scope Withdrawal Time 0 hours 26 minutes 27 seconds Scope Out: 2:06:53 PM Total Procedure Duration Time 0 hours 34 minutes 34 seconds Findings: Hemorrhoids were found on perianal exam. Non-bleeding internal hemorrhoids were found. The hemorrhoids were Grade I (internal hemorrhoids that do not prolapse). Seven sessile polyps were found in the rectum, sigmoid colon, descending colon and transverse colon. The polyps were less than 5 mm in size. These polyps were removed with a cold biopsy forceps. Resection and retrieval were complete. The exam was otherwise without abnormality. Impression: - Hemorrhoids found on perianal exam. - Non-bleeding internal hemorrhoids. - Six less than 5 mm polyps in the rectum, in the sigmoid colon and in the descending colon, removed with a cold biopsy forceps. Resected and retrieved. - The examination was otherwise normal. Recommendation: - Discharge patient to home. - Resume previous diet. - Continue present medications. - Await pathology results. - Repeat colonoscopy in 3 years for surveillance based on pathology results. Procedure Code(s): --- Professional --- 54430, Colonoscopy, flexible; with biopsy, single or multiple Diagnosis Code(s): --- Professional --- K64.0, First degree hemorrhoids K62.1, Rectal polyp D12.5, Benign neoplasm of sigmoid colon D12.4, Benign neoplasm of descending colon K62.5, Hemorrhage of anus and rectum CPT copyright 2017 [employer]. All rights reserved. The codes documented in this report are preliminary and upon penology professor review may be revised to meet current compliance requirements. MD Monae Bustamante MD 10/15/2020 2:14:33 PM This report has been signed electronically. Number of Addenda: 0 Note Initiated On: 10/15/2020 1:27 PM
--- NOTE | 2020-10-19 09:50 | OP.CCLET_ITS ---
10/19/2020 Hilario Garcia [address] [place] [address] Re : [place] [facility] [place] This procedure was performed on October. My impressions and recommendations are as follows: Impressions : - Hemorrhoids found on perianal exam. - Non-bleeding internal hemorrhoids. - Six less than 5 mm polyps in the rectum, in the sigmoid colon and in the descending colon, removed with a cold biopsy forceps. Resected and retrieved. - The examination was otherwise normal. Recommendations : - Discharge patient to home. - Resume previous diet. - Continue present medications. - Await pathology results. - Repeat colonoscopy in 3 years for surveillance based on pathology results. My findings are described in the full procedure note, which is enclosed. If I can be of further assistance, please feel free to contact me at Doctor phone number(s): , Work: . Sincerely, MD Monae Bustamante MD 10/15/2020 2:14:33 PM This report has been signed electronically.
== END 2020-10-15 15:00 | disposition home or self-care (01) ==
LOC: EN 10:19 → AC 10:47
PROVIDERS: PCP Family Medicine; Referring Provider Family Medicine; Visit Provider Surgery
PROC: 0DJD8ZZ Inspection of Lower Intestinal Tract, Via Natural or Artificial Opening Endoscopic (ICD-10-PCS; CPT 45378; principal; 2020-10-15 11:55)
DX: D12.4 Benign neoplasm of descending colon (principal); D12.5 Benign neoplasm of sigmoid colon; K62.1 Rectal polyp; K62.5 Hemorrhage of anus and rectum; K64.0 First degree hemorrhoids; K21.9 Gastro-esophageal reflux disease without esophagitis; I25.10 Atherosclerotic heart disease of native coronary artery without angina pectoris; I25.2 Old myocardial infarction; I10 Essential (primary) hypertension; E11.40 Type 2 diabetes mellitus with diabetic neuropathy, unspecified; E11.51 Type 2 diabetes mellitus with diabetic peripheral angiopathy without gangrene; E78.5 Hyperlipidemia, unspecified; J44.9 Chronic obstructive pulmonary disease, unspecified; G47.33 Obstructive sleep apnea (adult) (pediatric); F17.200 Nicotine dependence, unspecified, uncomplicated; E66.01 Morbid (severe) obesity due to excess calories; Z68.37 Body mass index [BMI] 37.0-37.9, adult; Z79.82 Long term (current) use of aspirin; Z79.02 Long term (current) use of antithrombotics/antiplatelets; Z79.4 Long term (current) use of insulin; Z79.899 Other long term (current) drug therapy
CPT/HCPCS: 45380; 82962; 88305; J7120

== ENCOUNTER → 2021-02-08 16:50 | Outpatient (CLI) | payer MEDICARE, MEDICAID, SELFPAY | PROVIDERS: PCP Family Medicine; Referring Provider Family Medicine; Visit Provider Family Medicine | DX: Z03.818 Encounter for observation for suspected exposure to other biological agents ruled out (principal) | CPT/HCPCS: 87635; U0005; U0003 ==

== ENCOUNTER 2021-03-10 15:46 | Emergency (ER) | payer MEDICARE, MEDICAID, SELFPAY ==
[2021-03-10 15:50] VITALS: BP 132/101; PULSE 84; RESP 16; TEMP 36.6; O2SAT 96; BMI 29.4
[2021-03-10] MEDS: 0.9% Normal Saline 1,000 ML 1000 ML IV (16:00)
--- NOTE | 2021-03-10 16:10 | CT_ITS ---
EXAM: CT HEAD WITHOUT INTRAVENOUS CONTRAST : 1970 CLINICAL INDICATION: Trauma TECHNIQUE: Multiple axial images were obtained of the head without intravenous contrast. This CT exam was performed using one or more of the following dose reduction techniques: automated exposure control, adjustment of the mA and/or kV according to patient size, and/or use of iterative reconstruction technique. This report was created using [employer] report generation technology. COMPARISON: None. FINDINGS: BRAIN AND EXTRA-AXIAL SPACES: Chronic bilateral lacunar infarcts noted within the basal ganglia. Diminished white matter density cosistent with chronic microvascular disese. No intra- or extra-axial hemorrhage. No intracranial mass or mass effect. Posterior fossa structures are unremarkable. Ventricles are appropriate for age. No hydrocephalus. Basal cisterns are patent. BONES/JOINTS: Unremarkable. No discrete lytic or blastic abnormalities. SINUSES: Mucosal thickening noted within the paranasal sinuses. MASTOID AIR CELLS: Unremarkable. Clear. ORBITS: Visualized globes, extraocular muscles, optic nerves and retrobulbar fat appear unremarkable. CT/Brain/Head without Contrast IMPRESSION: 1. No acute intracranial abnormality. 2. Chronic microvascular changes. Individualized dose optimization techniques were used for this CT. at 1634 Reported and signed by: Maxwell Stafford MD Electronically Signed: Maxwell Stafford MD at 16:32 EST Tel , Service support ,
--- NOTE | 2021-03-10 16:12 | CT_ITS ---
EXAM: CT CERVICAL SPINE WITHOUT INTRAVENOUS CONTRAST : 1970 CLINICAL INDICATION: Trauma TECHNIQUE: Helically acquired images were obtained of the cervical spine without intravenous contrast. 2D reformatted images were reviewed. This CT exam was performed using one or more of the following dose reduction techniques: automated exposure control, adjustment of the mA and/or kV according to patient size, and/or use of iterative reconstruction technique. This report was created using [employer] report generation technology. COMPARISON: July 10, 2017 FINDINGS: VERTEBRAE: Solid anterior fusion of C4, C5 and C6 unchanged from prior exam. No fracture. No traumatic subluxation. No discrete lytic or blastic abnormality. Normal alignment. Normal craniocervical junction and cervicothoracic junction. DISCS/SPINAL CANAL/NEURAL FORAMINA: Prominent anterior osteophytosis at the C3-4 and C6-7 levels again seen. No critical stenosis. SOFT TISSUES: Posterior soft tissue calcification noted related to remote trauma. No prevertebral soft tissue swelling. LYMPH NODES: Unremarkable. No cervical adenopathy. LUNG APICES: Unremarkable as visualized. Clear. CT/Spine Cervical without Contras IMPRESSION: 1. No acute fracture or subluxation. 2. Stable postoperative and degenerative changes. Individualized dose optimization techniques were used for this CT. at 1636 Reported and signed by: Maxwell Stafford MD Electronically Signed: Maxwell Stafford MD at 16:35 EST Tel , Service support ,
--- NOTE | 2021-03-10 16:35 | EKG12_ITS ---
Test Reason : FALL Blood Pressure : / mmHG Vent. Rate : 090 BPM Atrial Rate : 090 BPM P-R Int : 142 ms QRS Dur : 094 ms QT Int : 416 ms P-R-T Axes : 062 004 051 degrees QTc Int : 508 ms Normal sinus rhythm Prolonged QT Abnormal ECG Confirmed by GABRIEL TROY, DENICE ([id number]), health editor LAUREL MARIN ([id number]) on 03/11/2021 10:58:28 AM Referred By: GREY Confirmed By:DENICE RIOS MD
--- NOTE | 2021-03-10 16:37 | EDS_ITS ---
HPI HPI - Fall History of Present Illness Chief Complaint: Fall Informant: patient Occured/Mechanism Occurred: Today Mechanism/Context: Yes same level fall and Yes cannot recall fall Usually ambulates: Without assistance Pain/Injury Pain Location: head, neck and lower extremity Quality of Pain: Sharp Current Severity: Mild Maximum Severity: Mild Associated Symptoms Associated Symptoms: Positive for Weakness; Negative for Parasthesias, Loss of function, Inability to ambulate, Loss of consciousness and Amnesia Narrative Narrative: 50-year-old male extensive past medical history of chronic pain, COPD, CAD and NE, peripheral arterial disease on Plavix, diabetes and prior neck surgeries with plating. States he got up early this morning sometime after midnight he fell and he just remembers that he hit the left side of his face and forehead and left knee. He woke up on the floor at 9 AM this morning. Is not sure if he fell asleep or if he was knocked out. Said he tried to get up multiple times each time he feels lightheaded and falls again. Please is fallen multiple times today. Prior to the fall in the last several days he denies any recent illness. He denies any nausea, vomiting, diarrhea. He denies any fever or chills. He denies any chest pain, shortness of breath or abdominal pain. He has had no melena. Prior similar symptoms: No Recent Illness/Hospitalization: No PFSH PFS Medical History Cervical radiculopathy Chronic pain syndrome COPD (chronic obstructive pulmonary disease) Coronary arteriosclerosis CPAP (continuous positive airway pressure) dependence Degeneration of cervical intervertebral disc Depression DVT (deep venous thrombosis) Failed back syndrome, lumbar Gastric reflux History of stress test HTN (hypertension) Hyperlipidemia Insulin dependent diabetes mellitus Low testosterone Morbid obesity Myocardial infarction ARAM (obstructive sleep apnea) Osteoarthritis of right knee Poor dentition Pulmonary nodules Restless legs Right hydrocele S/P arteriogram of extremity Smoker Tobacco use Type 2 diabetes mellitus with diabetic neuropathy Home Medications albuterol sulfate 90 mcg/actuation aerosol inhaler 2 puff INHALATION Q4H PRN g 01/11/19 [History Last Taken Unknown] blood sugar diagnostic #10 ea 01/11/19 [History Last Taken Unknown] blood-glucose meter #1 ea 01/11/19 [History Last Taken Unknown] fenofibrate 160 mg tablet 160 mg PO DAILY 01/11/19 [History Last Taken Unknown] gabapentin 600 mg tablet 600 mg PO TID 01/11/19 [History Last Taken Unknown] glipizide 10 mg tablet, extended release 24 hr 10 mg PO BID tab 01/11/19 [History Last Taken Unknown] hydrocodone 10 mg-acetaminophen 325 mg tablet 1 tab PO .q4-6 hrs PRN tab 01/11/19 [History Last Taken Unknown] insulin glargine 100 unit/mL (3 mL) subcutaneous pen 30 unit SC BID ml 01/11/19 [History Last Taken Unknown] insulin lispro 100 unit/mL subcutaneous pen 20 unit SC .with largest meal ml 01/11/19 [History Last Taken Unknown] lisinopril 20 mg tablet 20 mg PO DAILY 01/11/19 [History Last Taken Unknown] metformin 1,000 mg tablet 1,000 mg PO BID 01/11/19 [History Last Taken Unknown] pen needle, diabetic 31 gauge x 3/16 #30 ea 01/11/19 [History Last Taken Unknown] quetiapine 200 mg tablet,extended release 24 hr 400 mg PO QPM tab 01/11/19 [History Last Taken Unknown] simvastatin 20 mg tablet 20 mg PO QPM 01/11/19 [History Last Taken Unknown] tamsulosin 0.4 mg capsule 0.4 mg PO DAILY 01/11/19 [History Last Taken Unknown] tizanidine 2 mg tablet 2 mg PO BID tab 01/11/19 [History Last Taken Unknown] trazodone 100 mg tablet 100 mg PO QHS 01/11/19 [History Last Taken Unknown] umeclidinium 62.5 mcg-vilanterol 25 mcg/actuation powdr for inhalation 1 inh INHALATION Q24H 01/11/19 [History Last Taken Unknown] empagliflozin 10 mg PO DAILY 11/19/19 [History Last Taken Unknown] omeprazole magnesium 20 mg PO DAILY 11/19/19 [History Last Taken Unknown] aspirin 81 mg tablet,delayed release 81 mg PO DAILY 10/07/20 [History Last Taken Unknown] cilostazol 100 mg tablet 100 mg PO BID 10/07/20 [History Last Taken Unknown] clopidogrel 75 mg tablet 75 mg PO DAILY 10/07/20 [History Last Taken Unknown] meloxicam 15 mg tablet 15 mg PO DAILY 10/07/20 [History Last Taken Unknown] peg 3350-electrolytes 236 gram-22.74 gram-6.74 gram-5.86 gram solution 4,000 ml PO ONCE #4000 ml 10/14/20 [Rx Last Taken Unknown] Allergy/AdvReac Type Severity Reaction Status Date / Time No Known Allergies Allergy Verified 03/10/21 15:57 Family History Father Heart disease Hypertension Hyperlipidemia Surgical History H/O neck surgery Previous back surgery Social History Smoking Status: Current every day smoker tobacco type: cigarettes ROS ROS ED ROS Narrative No recent illness. Review of Systems ROS Unobtainable: Denies due to encephalopathy Constitutional Constitutional ED: Denies chills, fever(s) or subjective Eyes Eyes: Denies change in vision ENT ENT ED: Denies ear pain Cardiovascular Cardiovascular: Denies chest pain, palpitations or racing heartbeat Respiratory/Chest Respiratory/Chest: Denies cough, dyspnea or sputum Gastrointestinal Gastrointestinal: Denies abdominal pain, constipation, diarrhea, melena, nausea or vomiting Genitourinary Genitourinary ED: Denies dysuria Musculoskeletal Musculoskeletal: Denies myalgias Integumentary Denies rash Neurologic Neurologic: Reports headache(s) Psychiatric Psychiatric: Denies depression Endocrine Endocrinology: Denies polyuria Hematologic/Lymphatic Hematologic/Lymphatic: Denies easy bruising Allergic/Immunologic Allergic/Immunologic ED: Denies urticaria EXAM Physical Exam Narrative Exam Narrative: 30-year-old male no acute distress. Vital signs stable. He is afebrile. He is not hypoxic his pulse ox is 96% on room air. HEENT exam minor contusion left forehead and face. Dry reactive light. Scalp nontender. Neck mildly tender. Trachea midline. Lungs clear to auscultation bilaterally. Heart regular rhythm no murmur. Chest wall nontender. Ribs nontender. Abdomen soft nontender. Normal bowel sounds no peritoneal signs. Pelvic girdle intact. Moving all 4 extremities. Normal plaster foreman strength. Normal dorsi plantar flexion. No shortening or rotation. Normal flexion extension of both hips knees and ankles. He is abrasion to his left knee is mildly tender anteriorly. There is no effusion or significant swelling. Ligaments appear to be intact. Upper extremities are nontender with normal range of motion. Back is nontender he has well-healed prior lower back surgery. Neurologically is awake and alert with no focal motor deficits. He knows the month, year where he is at, and the present [place]. He is not confused. Const Vital Signs: 03/10/21 15:50 03/10/21 16:53 03/10/21 17:35 Temperature 97.8 F Temperature Source Temporal Pulse Rate 84 97 Pulse Rate [Lying] 97 Pulse Rate [Sitting] 102 H Pulse Rate [Standing] 102 H Respiratory Rate 16 18 Respiratory Effort Normal Non-Labored Respiratory Pattern Normal Blood Pressure 132/101 H 95/63 Blood Pressure [Lying] 95/63 Blood Pressure [Sitting] 87/66 L Blood Pressure [Standing] 87/62 L Blood Pressure Mean 111 73 Blood Pressure Mean [Lying] 73 Blood Pressure Mean [Sitting] 73 Blood Pressure Mean [Standing] 70 Pulse Ox 96 97 Oxygen Delivery Method Room Air Room Air Positive well nourished and well developed; Negative for contractures or unkempt General Appearance ED: well developed and NAD; Negative for unkempt or contractures HEENT Reports normocephalic trauma; Negative for atraumatic Eyes PERRL and EOMs intact bilaterally General Eye ED: Negative for pale conjunctiva or scleral icterus Neck No full ROM, no lymphadenopathy and supple General: tenderness Chest Wall inspection of chest normal and palpation of chest normal Resp normal respiratory effort, no retractions and clear to auscultation bilaterally Auscultation: Negative for rales, rhonchi or wheezes Cardio regular rate, regular rhythm, S1 normal heart sound, S2 normal heart sound and no murmurs GI non-tender, non-distended and no masses Auscultation: normoactive bowel sounds Palpation: soft; Negative for guarding or rebound tenderness present Back/Spine no CVA tenderness General Back: Negative for CVA tenderness Cervical Spine: cervical spine tenderness Thoracic Spine / Upper Back: Negative for thoracic spinal tenderness Lumbar Spine / Lower Back: Negative for lumbar spinal tenderness or paraspinal muscle tenderness Extremity normal to inspection, full ROM, no calf tenderness and no pedal edema Neuro oriented x3, moves all extremities and no focal motor deficits Magan Coma Scale: document GCS findings Spontaneous Obeys Commands Oriented 15 Sensorium / Orientation: alert, oriented to person, oriented to place and oriented to time; Negative for orientation impaired, confused, lethargic or stuporous Motor Exam: strength 5/5 throughout Psych mental status grossly normal and thought process normal Appearance: Negative for unkempt Mood & Affect: Negative for depressed Skin Lesions: no lesions and No lesion noted Rashes: no rashes and No rashes noted Trauma: Negative for abrasion or laceration MDM MDM MDM Narrative Medical decision making narrative: 50-year-old male multiple falls at home and lightheadedness. CT of his head neck is being obtained along with an x-ray of his left knee. Screening labs are being obtained. His exam is pretty benign. 1 back to reevaluate the patient he told the nurses before you get back into his room that he had animals to take care of and he left without being discharged. Patient was here for several hours due to the volume and acuity of the emergency department at this time. I will try to reach him by phone. I spoke to the patient at 10:50 PM. I went over all his tests with him. He said he is unable to return the night. He has 7 macaws at home and one cat and he has no one to help him take care of them. His daughter lives in [place] and his sons unavailable to help him. I explained to him my concern of his elevated white count, his Ortho static hypotension, his dehydration and acute kidney injury and his hypokalemia. Explained to him there could be significant underlying other issues such as infection etc. He says he has been drinking fluids since he has been home. He will return tomorrow afternoon for repeat labs and further evaluation. He did not want to come back in [facility] and said he was unable due to things that he had to do at his house. Lab Data Attestation: I reviewed the patient's lab results. Lab results narrative: CBC shows a white count of 17.2. Hemoglobin 15. Platelets of 325. Electrolytes show a sodium 133 potassium of 2.5 gap of 12 BUN 19 creatinine is elevated 2.9. Glucose 120 liver enzymes are negative. CT of the brain shows no acute abnormality as read by the radiologist and reviewed by me. CT of the cervical spine shows chronic changes. Patient has an acute leukocytosis. Acute kidney injury because it is most recent creatinine we have was previously 1. Is also significantly hypokalemic. Labs: Laboratory Results - last 24 hr 03/10/21 03/10/2122 16:45 16:45 18:02 WBC 17.2 H RBC 5.16 Hgb 15.5 Hct 44.4 MCV 86.0 MCH 30.0 MCHC 34.9 RDW Std Deviation 43.2 RDW Coeff of Nicole 13.6 Plt Count 325 MPV 10.2 Immature Gran % (Auto) 0.800 Neut % (Auto) 76.6 H Lymph % (Auto) 12.3 L Whitfield % (Auto) 6.6 Eos % (Auto) 3.2 Baso % (Auto) 0.5 Absolute Neuts (auto) 13.2 H Absolute Lymphs (auto) 2.12 Nucleated RBC % 0 Sodium 133 L Potassium 2.5 L* Chloride 95 L Carbon Dioxide 26.0 Anion Gap 12 BUN 19 H Creatinine 2.90 H Estim Creat Clear Calc 31.12 Est GFR (MDRD) Af Amer 30 L Est GFR (MDRD) Non-Af 25 L BUN/Creatinine Ratio 6.6 L Glucose 120 H Lactic Acid 2.6 H* Calcium 9.2 Total Bilirubin 0.70 AST 23 ALT 42 Alkaline Phosphatase 64 Total Protein 7.1 Albumin 3.6 Globulin 3.5 Albumin/Globulin Ratio 1.0 Radiography Diagnostic Testing: Clinical Impression(s) from Imaging Studies Brain CT 03/10/21 16:10 IMPRESSION: 1. No acute intracranial abnormality. 2. Chronic microvascular changes. Individualized dose optimization techniques were used for this CT. at 1634 Reported and signed by: Maxwell Stafford MD Electronically Signed: Maxwell Stafford MD at 16:32 EST Tel , Service support , Cervical Spine CT 03/10/21 16:12 IMPRESSION: 1. No acute fracture or subluxation. 2. Stable postoperative and degenerative changes. Individualized dose optimization techniques were used for this CT. at 1636 Reported and signed by: Maxwell Stafford MD Electronically Signed: Maxwell Stafford MD at 16:35 EST Tel , Service support , Knee X-Ray 03/10/21 16:37 IMPRESSION: No acute bony abnormality. at 1717 Reported and signed by: Alec Ramírez MD Electronically Signed: Alec Ramírez MD at 17:16 EST Tel , Service support , Chest X-Ray 03/10/21 17:00 IMPRESSION: No radiographic evidence of acute cardiopulmonary disease. at 1718 Reported and signed by: Alec Ramírez MD Electronically Signed: Alec Ramírez MD at 17:16 EST Tel , Service support , Portable chest x-ray single view showed no acute abnormality. Interpreted by myself and the radiologist. Left knee x-ray 4 views interpreted by myself the radiologist shows no acute abnormality. CAT scan of the brain and neck showed no acute abnormalities as read by the radiologist and reviewed by me. Rhythm Strip Rhythm Strip: Sinus Rhythm Rate: 90 Ectopy: None EKG Initial EKG: Attestation: I personally reviewed and interpreted this EKG as follows: Interpretation: Sinus Rhythm and No Acute Injury Pattern Comments: Normal sinus rhythm rate of 90 no acute signs of NE or ischemia. Discharge Plan Triage Chief Complaint: Fall Other Complaint: Hypotension ED Provider: Shamar Hill Dx/Rx/DC Orders Clinical Impression: Orthostatic hypotension, Leukocytosis, Multiple falls, Acute dehydration, Acute kidney injury, Acute hypokalemia, Eloped from emergency department Prescriptions: No Action Anoro Ellipta 62.5-25 mcg/actuation blister with device 1 inh INHALATION Q24H RF: 0 fenofibrate 160 mg tablet 160 mg PO DAILY RF: 0 gabapentin 600 mg tablet 600 mg PO TID RF: 0 glipizide 10 mg tablet extended release 24hr 10 mg PO BID RF: 0 insulin lispro [Humalog KwikPen Insulin] 100 unit/mL insulin pen 20 unit SC .with largest meal RF: 0 hydrocodone-acetaminophen 10-325 mg tablet 1 tab PO .q4-6 hrs PRN (Reason: Pain Or Fever) RF: 0 Lantus Solostar U-100 Insulin 100 unit/mL (3 mL) insulin pen 30 unit SC BID RF: 0 lisinopril 20 mg tablet 20 mg PO DAILY RF: 0 metformin 1,000 mg tablet 1,000 mg PO BID RF: 0 albuterol sulfate [ProAir HFA] 90 mcg/actuation HFA aerosol inhaler 2 puff INHALATION Q4H PRN (Reason: Wheezing) RF: 0 quetiapine 200 mg tablet extended release 24 hr 400 mg PO QPM RF: 0 simvastatin 20 mg tablet 20 mg PO QPM RF: 0 tamsulosin 0.4 mg capsule 0.4 mg PO DAILY RF: 0 tizanidine 2 mg tablet 2 mg PO BID RF: 0 trazodone 100 mg tablet 100 mg PO QHS RF: 0 (DME) pen needle, diabetic [Easy Touch] 31 gauge x 3/16 needle See Rx Instructions .ROUTE .MEDSUPPLY Qty: 30 RF: 0 (DME) blood-glucose meter [OneTouch Ultra2 Meter] [facility] See Rx Instructions .ROUTE .MEDSUPPLY Qty: 1 RF: 0 (DME) OneTouch Ultra Blue Test Strip Strip See Rx Instructions .ROUTE .MEDSUPPLY Qty: 10 RF: 0 cilostazol 100 mg tablet 100 mg PO BID RF: 0 clopidogrel [Plavix] 75 mg tablet 75 mg PO DAILY RF: 0 meloxicam 15 mg tablet 15 mg PO DAILY RF: 0 aspirin 81 mg tablet,delayed release (DR/EC) 81 mg PO DAILY RF: 0 omeprazole magnesium 20 MG tablet,delayed release (DR/EC) 20 mg PO DAILY RF: 0 empagliflozin 10 MG tablet 10 mg PO DAILY RF: 0 peg 3350-electrolytes 236-22.74-6.74 -5.86 gram recon soln 4,000 ml PO ONCE Qty: 4000 RF: 0 Primary Care Provider: Hilario Garcia Referrals: Hilario Garcia DO [Primary Care Provider] - Disposition Disposition: Elopement
--- NOTE | 2021-03-10 16:37 | RAD_ITS ---
HISTORY: Trauma, fall EXAMINATION/TECHNIQUE: XR Knee Complete 4 Views or More: COMPARISON: None FINDINGS: BONES/JOINTS: No acute fracture or dislocation. Preservation of the joint spaces. No sclerotic or destructive changes observed. SOFT TISSUES: No soft tissue swelling or gas. No radiopaque foreign body. RAD/Knee 4 or More Views IMPRESSION: No acute bony abnormality. at 1717 Reported and signed by: Alec Ramírez MD Electronically Signed: Alec Ramírez MD at 17:16 EST Tel , Service support ,
[2021-03-10 16:57] LABS: Absolute Lymphocyte Count 2.12 X10^3/uL (0.83-4.51); Absolute Neutrophil Count 13.2 X10^3/uL (2.0-7.7); Basophil# 0.08 X10^3/uL; Basophil% 0.5 % (0-1); Eosinophil# 0.55 X10^3/uL; Eosinophils% 3.2 % (0-5); Hematocrit 44.4 % (40-54); Hemoglobin 15.5 g/dL (13.0-16.5); Lymphocyte # 2.12 X10^3/ul (0.83-4.51); Lymphocyte % 12.3 % (19-41); Mean Corp Hgb Conc 34.9 g/dL (32-36); Mean Platelet Vol. 10.2 fl (6.2-12.0); Monocyte# 1.14 X10^3/uL; Monocyte% 6.6 % (0-10); NRBC Flagged by Analyzer 0 % (0-5); Neutrophil # 13.15 X10^3/uL (2.7-7.7); Neutrophil % 76.6 % (47-70); Platelet Count 325 K/mm3 (150-450); RBC Distribution Width CV 13.6 % (11.6-14.6); RBC Distribution Width SD 43.2 fl (35.1-43.9); Red Blood Count 5.16 M/mm3 (4.6-6.2); White Blood Count 17.2 K/mm3 (4.4-11.0)
--- NOTE | 2021-03-10 17:00 | RAD_ITS ---
HISTORY: weakness EXAMINATION/TECHNIQUE: XR Chest 1 View: Portable upright AP chest x-ray COMPARISON: None FINDINGS: LINES/DEVICES: None. LUNGS: No consolidation, edema or effusion. No pneumothorax. MEDIASTINUM AND CARDIOVASCULAR STRUCTURES: Cardiac silhouette not enlarged. Central airways and mediastinal contour are unremarkable. BONES AND SOFT TISSUES: No acute bony abnormalities. RAD/Chest 1 View (Portable) IMPRESSION: No radiographic evidence of acute cardiopulmonary disease. at 1718 Reported and signed by: Alec Ramírez MD Electronically Signed: Alec Ramírez MD at 17:16 EST Tel , Service support ,
[2021-03-10 17:13] LABS: AST(SGOT) 23 U/L (15-37); Alanine Aminotransfer ALT/SGPT 42 U/L (16-61); Albumin, Serum 3.6 g/dL (3.2-5.0); Alkaline Phosphatase 64 U/L (45-117); Anion Gap 12 (5-15); BUN 19 mg/dL (7-18); BUN/Creat Ratio 6.6 RATIO (10-20); Calcium,Total 9.2 mg/dL (8.5-10.1); Chloride 95 mmol/L (98-107); EST Glomerular Filtration Rate 25 mL/min (>60); Est Glom Filt Rate - Afr Amer 30 mL/min (>60); Estimated Creatinine Clearance 31.12 ml/min; Globulin 3.5 g/dL (2.2-4.2); Glucose 120 mg/dL (74-106); Potassium 2.5 mmol/L (3.5-5.1); Protein, Total 7.1 g/dL (6.4-8.2); Sodium Level 133 mmol/L (136-145)
[2021-03-10 17:35] VITALS: BP 87/62; BP 87/66; BP 95/63; PULSE 102; PULSE 97; RESP 18; O2SAT 97
[2021-03-10 19:26] LABS: Lactic Acid 2.6 mmol/L (0.4-1.9)
[2021-03-10 22:15] LABS: Reflex Lactate? Y
== END 2021-03-10 20:06 | disposition left against medical advice (07) ==
PROVIDERS: Emergency Provider Emergency Medicine; PCP Family Medicine; Visit Provider Emergency Medicine
DX: I95.1 Orthostatic hypotension (principal); E11.51 Type 2 diabetes mellitus with diabetic peripheral angiopathy without gangrene; N17.9 Acute kidney failure, unspecified; J44.9 Chronic obstructive pulmonary disease, unspecified; E11.40 Type 2 diabetes mellitus with diabetic neuropathy, unspecified; E66.01 Morbid (severe) obesity due to excess calories; Z79.4 Long term (current) use of insulin; D72.829 Elevated white blood cell count, unspecified; E87.6 Hypokalemia; F17.210 Nicotine dependence, cigarettes, uncomplicated; E78.5 Hyperlipidemia, unspecified; I10 Essential (primary) hypertension; I25.10 Atherosclerotic heart disease of native coronary artery without angina pectoris; I25.2 Old myocardial infarction; E86.0 Dehydration; R29.6 Repeated falls; G89.4 Chronic pain syndrome; Z68.29 Body mass index [BMI] 29.0-29.9, adult; Z79.84 Long term (current) use of oral hypoglycemic drugs; Z79.02 Long term (current) use of antithrombotics/antiplatelets; Z79.82 Long term (current) use of aspirin; Z79.899 Other long term (current) drug therapy
CPT/HCPCS: 70450; 71045; 72125; 73564; 80053; 83605; 85025; 93005; 96360; 99285; J7030

== ENCOUNTER 2021-04-27 21:41 | Emergency (ER) | payer MEDICARE, MEDICAID, SELFPAY ==
[2021-04-27 21:41] VITALS: BP 140/82; PULSE 83; RESP 16; TEMP 36.1; O2SAT 100; BMI 26.4
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
--- NOTE | 2021-04-27 22:12 | EX.ED.UPPERE ---
HPI History of Present Illness Chief Complaint: Upper Extremity Injury Detail of Chief Complaint: Right hand pain due to blunt trauma Informant: patient Onset/Context/Timing Onset: Hours Context: Sudden Onset Timing: Continuous Quality of Pain: Aching and Throbbing Current Severity: Moderate Maximum Severity: Severe Worsened by: Use of right hand Relieved by: Nothing Associated Symptoms Associated Symptoms: Positive for Loss of Funtion; Negative for Parasthesia and Weakness Narrative Narrative: Patient is a 50-year-old [id number] male hit a mobile object with clenched fist. He complains of pain right hand. He denies paresthesia, anesthesia motors. He has no other complaints. Tetanus Immunization: Unknown Prior similar symptoms: No Recent Illness/Hospitalization: No PFSH PFSH Medical History Cervical radiculopathy Chronic pain syndrome COPD (chronic obstructive pulmonary disease) Coronary arteriosclerosis CPAP (continuous positive airway pressure) dependence Degeneration of cervical intervertebral disc Depression DVT (deep venous thrombosis) Failed back syndrome, lumbar Gastric reflux History of stress test HTN (hypertension) Hyperlipidemia Insulin dependent diabetes mellitus Low testosterone Morbid obesity Myocardial infarction ARAM (obstructive sleep apnea) Osteoarthritis of right knee Poor dentition Pulmonary nodules Restless legs Right hydrocele S/P arteriogram of extremity Smoker Tobacco use Type 2 diabetes mellitus with diabetic neuropathy Home Medications albuterol sulfate 90 mcg/actuation aerosol inhaler 2 puff INHALATION Q4H PRN g 01/11/19 [History Last Taken Unknown] blood sugar diagnostic #10 ea 01/11/19 [History Last Taken Unknown] blood-glucose meter #1 ea 01/11/19 [History Last Taken Unknown] fenofibrate 160 mg tablet 160 mg PO DAILY 01/11/19 [History Last Taken Unknown] gabapentin 600 mg tablet 600 mg PO TID 01/11/19 [History Last Taken Unknown] glipizide 10 mg tablet, extended release 24 hr 10 mg PO BID tab 01/11/19 [History Last Taken Unknown] hydrocodone 10 mg-acetaminophen 325 mg tablet 1 tab PO .q4-6 hrs PRN tab 01/11/19 [History Last Taken Unknown] insulin glargine 100 unit/mL (3 mL) subcutaneous pen 30 unit SC BID ml 01/11/19 [History Last Taken Unknown] insulin lispro 100 unit/mL subcutaneous pen 20 unit SC .with largest meal ml 01/11/19 [History Last Taken Unknown] lisinopril 20 mg tablet 20 mg PO DAILY 01/11/19 [History Last Taken Unknown] metformin 1,000 mg tablet 1,000 mg PO BID 01/11/19 [History Last Taken Unknown] pen needle, diabetic 31 gauge x 05/19 #30 ea 01/11/19 [History Last Taken Unknown] quetiapine 200 mg tablet,extended release 24 hr 400 mg PO QPM tab 01/11/19 [History Last Taken Unknown] simvastatin 20 mg tablet 20 mg PO QPM 01/11/19 [History Last Taken Unknown] tamsulosin 0.4 mg capsule 0.4 mg PO DAILY 01/11/19 [History Last Taken Unknown] tizanidine 2 mg tablet 2 mg PO BID tab 01/11/19 [History Last Taken Unknown] trazodone 100 mg tablet 100 mg PO QHS 01/11/19 [History Last Taken Unknown] umeclidinium 62.5 mcg-vilanterol 25 mcg/actuation powdr for inhalation 1 inh INHALATION Q24H 01/11/19 [History Last Taken Unknown] empagliflozin 10 mg PO DAILY 11/19/19 [History Last Taken Unknown] omeprazole magnesium 20 mg PO DAILY 11/19/19 [History Last Taken Unknown] aspirin 81 mg tablet,delayed release 81 mg PO DAILY 10/07/20 [History Last Taken Unknown] cilostazol 100 mg tablet 100 mg PO BID 10/07/20 [History Last Taken Unknown] clopidogrel 75 mg tablet 75 mg PO DAILY 10/07/20 [History Last Taken Unknown] meloxicam 15 mg tablet 15 mg PO DAILY 10/07/20 [History Last Taken Unknown] peg 3350-electrolytes 236 gram-22.74 gram-6.74 gram-5.86 gram solution 4,000 ml PO ONCE #4000 ml 10/14/20 [Rx Last Taken Unknown] hydrocodone-acetaminophen 1 tab PO Q6H PRN PRN 3 Days #10 tablet 04/27/21 [Rx Last Taken Unknown] Allergy/AdvReac Type Severity Reaction Status Date / Time No Known Allergies Allergy Verified 03/10/21 15:57 Family History Father Heart disease Hypertension Hyperlipidemia Surgical History H/O neck surgery Previous back surgery Social History (Updated 04/27/21 @ 22:[address] Jarek Limon MD) household members: none Smoking Status: Current every day smoker tobacco type: cigarettes alcohol intake: current alcohol intake frequency: other substance use type: does not use ROS ROS ED Gastrointestinal Gastrointestinal: Denies nausea or vomiting Musculoskeletal Musculoskeletal: Denies back pain, myalgias or neck pain Integumentary Denies abscess, Abrasions or rash Neurologic Neurologic: Denies paresthesias or weakness Hematologic/Lymphatic Hematologic/Lymphatic: Denies easy bleeding or easy bruising EXAM Physical Exam Const Vital Signs: 04/27/21 21:41 Temperature 96.9 F L Temperature Source Temporal Pulse Rate 83 Respiratory Rate 16 Blood Pressure 140/82 H Blood Pressure Mean 101 Pulse Ox 100 Oxygen Delivery Method Room Air Positive well nourished and well developed General Appearance ED: well developed and NAD HEENT normocephalic and atraumatic Eyes PERRL and EOMs intact bilaterally Resp normal respiratory effort Cardio regular rate and regular rhythm Extremity Negative for normal to inspection or full ROM Extremity Narrative: There is obvious contusion abnormality base of the fourth fifth metacarpal right hand. There is pain ovation over the area. There is no rotational malalignment. The extensor minimized and extensor commonest tendon are functionally intact. The flexor digitorum profundus and flexor digitorum superficialis are intact for the little, ring and long finger. There is no pain the patient over the carpal bones or the distal radius or ulna. There is no pain the patient over the phalanges. Radial pulses palpable. Capillary refill is normal. General Extremety ED: Negative for edema General Extremity: Negative for edema Neuro oriented x3 and CN's II-XII intact bilaterally Sensorium / Orientation: alert Psych mental status grossly normal Attitude: agitated Skin Lesions: no lesions Rashes: no rashes Trauma: no lacerations or abrasions MDM MDM MDM Narrative Medical decision making narrative: X-rays obtained to delineate fracture versus contusion versus dislocation. Case was discussed with Dr. Jeet Thibodeaux. Plan is ulnar gutter splint follow-up in office. Radiography Diagnostic Testing: Three-view x-ray of the right hand reveals a comminuted angulated nondisplaced fracture proximal fifth metacarpal. Procedures Upper Extremity Splints Upper Extremity Splint: Plaster and Ulnar gutter Splint Fabrication: Fabricated Location: Right Discharge Plan Triage Chief Complaint: Upper Extremity Injury ED Provider: aJrek Limon Dx/Rx/DC Orders Clinical Impression: Fracture of fifth metacarpal bone of right hand Instructions: ED Closed Hand Fracture (Adult) Prescriptions: New hydrocodone-acetaminophen [hydrocodone-acetaminophen] 1 TABLET tablet 1 tab PO Q6H PRN PRN (Reason: Pain) 3 Days Qty: 10 RF: 0 No Action Anoro Ellipta 62.5-25 mcg/actuation blister with device 1 inh INHALATION Q24H RF: 0 fenofibrate 160 mg tablet 160 mg PO DAILY RF: 0 gabapentin 600 mg tablet 600 mg PO TID RF: 0 glipizide 10 mg tablet extended release 24hr 10 mg PO BID RF: 0 insulin lispro [Humalog KwikPen Insulin] 100 unit/mL insulin pen 20 unit SC .with largest meal RF: 0 hydrocodone-acetaminophen 10-325 mg tablet 1 tab PO .q4-6 hrs PRN (Reason: Pain Or Fever) RF: 0 Lantus Solostar U-100 Insulin 100 unit/mL (3 mL) insulin pen 30 unit SC BID RF: 0 lisinopril 20 mg tablet 20 mg PO DAILY RF: 0 metformin 1,000 mg tablet 1,000 mg PO BID RF: 0 albuterol sulfate [ProAir HFA] 90 mcg/actuation HFA aerosol inhaler 2 puff INHALATION Q4H PRN (Reason: Wheezing) RF: 0 quetiapine 200 mg tablet extended release 24 hr 400 mg PO QPM RF: 0 simvastatin 20 mg tablet 20 mg PO QPM RF: 0 tamsulosin 0.4 mg capsule 0.4 mg PO DAILY RF: 0 tizanidine 2 mg tablet 2 mg PO BID RF: 0 trazodone 100 mg tablet 100 mg PO QHS RF: 0 (DME) pen needle, diabetic [Easy Touch] 31 gauge x 3/16 needle See Rx Instructions .ROUTE .MEDSUPPLY Qty: 30 RF: 0 (DME) blood-glucose meter [OneTouch Ultra2 Meter[place] [facility] [place] Instructions .ROUTE .MEDSUPPLY Qty: 1 RF: 0 (DME) OneTouch Ultra Blue Test Strip Strip See Rx Instructions .ROUTE .MEDSUPPLY Qty: 10 RF: 0 cilostazol 100 mg tablet 100 mg PO BID RF: 0 clopidogrel [Plavix] 75 mg tablet 75 mg PO DAILY RF: 0 meloxicam 15 mg tablet 15 mg PO DAILY RF: 0 aspirin 81 mg tablet,delayed release (DR/EC) 81 mg PO DAILY RF: 0 omeprazole magnesium 20 MG tablet,delayed release (DR/EC) 20 mg PO DAILY RF: 0 empagliflozin 10 MG tablet 10 mg PO DAILY RF: 0 peg 3350-electrolytes 236-22.74-6.74 -5.86 gram recon soln 4,000 ml PO ONCE Qty: 4000 RF: 0 Primary Care Provider: Hilario Garcia Referrals: Jeet Thibodeaux DO [STAFF PHYSICIAN] - 5-7 Days Hilario Garcia DO [Primary Care Provider] - Activity Restrictions/Additional Instructions: 1. Keep splint absolutely clean and dry 2. Elevate hand above your nose 3. Apply ice 6-8 times a day Disposition Disposition: Home, Self Care
[2021-04-27] MEDS: HYDROcodone Bitartrate/Apap 5/325 Tablet PO (22:23)
== END 2021-04-27 23:32 | disposition home or self-care (01) ==
PROVIDERS: Emergency Provider Emergency Medicine; PCP Family Medicine; Visit Provider Emergency Medicine
DX: S62.316A Displaced fracture of base of fifth metacarpal bone, right hand, initial encounter for closed fracture (principal); J44.9 Chronic obstructive pulmonary disease, unspecified; E11.40 Type 2 diabetes mellitus with diabetic neuropathy, unspecified; E66.01 Morbid (severe) obesity due to excess calories; Z79.4 Long term (current) use of insulin; W22.09XA Striking against other stationary object, initial encounter; I10 Essential (primary) hypertension; I25.10 Atherosclerotic heart disease of native coronary artery without angina pectoris; E78.5 Hyperlipidemia, unspecified; F17.210 Nicotine dependence, cigarettes, uncomplicated; Z79.82 Long term (current) use of aspirin; Z79.84 Long term (current) use of oral hypoglycemic drugs; Z79.899 Other long term (current) drug therapy
CPT/HCPCS: 29126; 73130; 99283

== ENCOUNTER → 2021-08-16 | Outpatient (CLI) | payer MEDICARE, MEDICAID, SELFPAY ==
[2021-08-16 11:26] LABS: Amphetamine Urine VISTA POSITIVE (<1000 ng/mL); Barbiturate Urine VISTA NEGATIVE (< 200 ng/mL); Benzodiazepine Urine VISTA NEGATIVE (< 200 ng/mL); Cocaine Urine VISTA NEGATIVE (< 300 ng/mL); Ecstacy Urine VISTA POSITIVE (< 500 ng/mL); Methadone Urine VISTA NEGATIVE (< 300 ng/mL); PCP Urine VISTA NEGATIVE (< 25 ng/mL); THC Urine VISTA NEGATIVE (< 50 ng/mL); Vista UDS pH Range 5
== END | disposition home or self-care (01) ==
PROVIDERS: PCP Family Medicine; Referring Provider Anesthesiology Pain Medicine; Visit Provider Anesthesiology Pain Medicine
DX: F11.20 Opioid dependence, uncomplicated (principal)
CPT/HCPCS: 80307

== ENCOUNTER → 2021-10-27 | Outpatient (CLI) | payer MEDICARE, MEDICAID, SELFPAY ==
[2021-10-27 16:51] LABS: Absolute Lymphocyte Count 3.13 X10^3/uL (0.83-4.51); Absolute Neutrophil Count 6.2 X10^3/uL (2.0-7.7); Basophil# 0.07 X10^3/uL; Basophil% 0.6 % (0-1); Eosinophils% 8.2 % (0-5); Hemoglobin 14.8 g/dL (13.0-16.5); Lymphocyte # 3.13 X10^3/ul (0.83-4.51); Lymphocyte % 28.4 % (19-41); Mean Corp Hgb Conc 34.4 g/dL (32-36); Mean Corpuscular Hgb 32.3 pg (27.0-32.0); Mean Corpuscular Volume 93.9 fL (80-94); Mean Platelet Vol. 9.8 fl (6.2-12.0); Monocyte# 0.71 X10^3/uL; Monocyte% 6.4 % (0-10); NRBC Flagged by Analyzer 0 % (0-5); Neutrophil % 56.2 % (47-70); Platelet Count 265 K/mm3 (150-450); RBC Distribution Width CV 13.2 % (11.6-14.6); RBC Distribution Width SD 45.1 fl (35.1-43.9); Red Blood Count 4.58 M/mm3 (4.6-6.2)
[2021-10-27 17:25] LABS: Microalbumin,Random Urine 60.9 mg/L (NO RANGE EST.); Microalbumin:Creatinine Ratio 38.5 mg/g CRE (<30 mg/g CRE)
[2021-10-27 17:27] LABS: ALB/GLOB Ratio 1.1 RATIO (0.9-2.4); AST(SGOT) 22 U/L (15-37); Alanine Aminotransfer ALT/SGPT 24 U/L (16-61); Albumin, Serum 3.6 g/dL (3.2-5.0); Alkaline Phosphatase 54 U/L (45-117); Anion Gap 4 (5-15); BUN 12 mg/dL (7-18); BUN/Creat Ratio 14.9 RATIO (10-20); Calcium,Total 9.1 mg/dL (8.5-10.1); Chloride 102 mmol/L (98-107); Cholesterol 174 mg/dL (200); Creatinine, Serum 0.81 mg/dL (0.70-1.30); EST Glomerular Filtration Rate 107 mL/min (>60); Est Glom Filt Rate - Afr Amer 129 mL/min (>60); Globulin 3.3 g/dL (2.2-4.2); Glucose 104 mg/dL (74-106); High Density Lipoprotein 57 mg/dL; Potassium 3.8 mmol/L (3.5-5.1); Protein, Total 6.9 g/dL (6.4-8.2); Sodium Level 136 mmol/L (136-145); Triglycerides 90 mg/dL; Very Low Density Lipoprotein 18 mg/dL (5-40)
[2021-10-27 21:59] LABS: Hemoglobin A1c 5.7 % (3.8-5.6)
== END | disposition home or self-care (01) ==
LOC: LAB 15:28
PROVIDERS: PCP Family Medicine; Visit Provider Family Medicine
DX: E11.21 Type 2 diabetes mellitus with diabetic nephropathy (principal); I25.10 Atherosclerotic heart disease of native coronary artery without angina pectoris; I10 Essential (primary) hypertension; E78.5 Hyperlipidemia, unspecified
CPT/HCPCS: 36415; 80053; 80061; 82043; 82570; 83036; 85025

== ENCOUNTER → 2021-11-01 | Outpatient (CLI) | payer MEDICARE, MEDICAID, SELFPAY ==
[2021-11-01 17:49] LABS: PSA,Total - Annual Screen 0.82 ng/mL (0.00-4.00)
[2021-11-01 19:42] LABS: Chlamydia Trachomatis by PCR Negative (Negative); Neisserai gonorrhoeae by PCR Negative (Negative); Probe Check PASS; Sample Adequacy Control PASS; Specimen Processing Control PASS
[2021-11-02 08:49] LABS: HIV - WCH Non-Reactive (Nonreactive); Syphilis Antibodies Non-reactive
== END | disposition home or self-care (01) ==
LOC: LAB 15:52
PROVIDERS: PCP Family Medicine; Referring Provider Family Medicine; Visit Provider Family Medicine
DX: Z12.5 Encounter for screening for malignant neoplasm of prostate (principal); Z20.9 Contact with and (suspected) exposure to unspecified communicable disease
CPT/HCPCS: 36415; 84153; 86703; 86780; 87491; 87591; G0103

== ENCOUNTER → 2022-06-23 | Outpatient (CLI) | payer MEDICARE, MEDICAID, SELFPAY ==
[2022-07-01 12:09] LABS: Testosterone, % Free 1.42 % (1.50-4.20); Testosterone, Free 7.58 ng/dL (5.00-21.00); Testosterone, Total 534 ng/dL (264-916)
== END | disposition home or self-care (01) ==
LOC: BFHLAB 16:11
PROVIDERS: PCP Family Medicine; Referring Provider Family Medicine; Visit Provider Family Medicine
DX: R79.89 Other specified abnormal findings of blood chemistry (principal)
CPT/HCPCS: 36415; 83036; 84402; 84403

== ENCOUNTER → 2022-10-31 | Outpatient (CLI) | payer MEDICARE, MEDICAID, SELFPAY ==
[2022-10-31 15:27] LABS: Absolute Lymphocyte Count 3.24 X10^3/uL (0.83-4.51); Absolute Neutrophil Count 7.3 X10^3/uL (2.0-7.7); Basophil# 0.07 X10^3/uL; Basophil% 0.6 % (0-1); Eosinophil# 1.03 X10^3/uL; Eosinophils% 8.2 % (0-5); Hematocrit 47.1 % (40-54); Hemoglobin 15.6 g/dL (13.0-16.5); Lymphocyte # 3.24 X10^3/ul (0.83-4.51); Lymphocyte % 25.9 % (19-41); Mean Corp Hgb Conc 33.1 g/dL (32-36); Mean Corpuscular Volume 93.5 fL (80-94); Mean Platelet Vol. 10.2 fl (6.2-12.0); Monocyte# 0.87 X10^3/uL; NRBC Flagged by Analyzer 0 % (0-5); Neutrophil # 7.25 X10^3/uL (2.7-7.7); Platelet Count 274 K/mm3 (150-450); RBC Distribution Width CV 13.9 % (11.6-14.6); RBC Distribution Width SD 47.5 fl (35.1-43.9); Red Blood Count 5.04 M/mm3 (4.6-6.2); White Blood Count 12.5 K/mm3 (4.4-11.0)
[2022-10-31 16:08] LABS: ALB/GLOB Ratio 1.2 RATIO (0.9-2.4); AST(SGOT) 17 U/L (15-37); Alanine Aminotransfer ALT/SGPT 24 U/L (16-61); Albumin, Serum 3.7 g/dL (3.2-5.0); Alkaline Phosphatase 72 U/L (45-117); Anion Gap 4 (5-15); BUN 10 mg/dL (7-18); BUN/Creat Ratio 10.8 RATIO (10-20); Calcium,Total 8.6 mg/dL (8.5-10.1); Chloride 109 mmol/L (98-107); Cholesterol 193 mg/dL (200); Creatinine, Serum 0.92 mg/dL (0.70-1.30); EST Glomerular Filtration Rate 91 mL/min (>60); Est Glom Filt Rate - Afr Amer 110 mL/min (>60); Globulin 3.2 g/dL (2.2-4.2); Glucose 93 mg/dL (74-106); High Density Lipoprotein 52 mg/dL; PSA,Total - Annual Screen 0.48 ng/mL (0.00-4.00); Potassium 3.9 mmol/L (3.5-5.1); Protein, Total 6.9 g/dL (6.4-8.2); Sodium Level 141 mmol/L (136-145); Triglycerides 181 mg/dL; Very Low Density Lipoprotein 36 mg/dL (5-40)
[2022-10-31 16:28] LABS: Hemoglobin A1c 5.7 % (3.8-5.6)
[2022-10-31 16:37] LABS: Microalbumin:Creatinine Ratio 68.6 mg/g CRE (<30 mg/g CRE)
== END | disposition home or self-care (01) ==
PROVIDERS: PCP Family Medicine; Referring Provider Family Medicine; Visit Provider Family Medicine
DX: E11.21 Type 2 diabetes mellitus with diabetic nephropathy (principal); I25.10 Atherosclerotic heart disease of native coronary artery without angina pectoris; I10 Essential (primary) hypertension; E78.5 Hyperlipidemia, unspecified; Z12.5 Encounter for screening for malignant neoplasm of prostate
CPT/HCPCS: 36415; 80053; 80061; 82043; 82570; 83036; 84153; 85025; G0103

== ENCOUNTER → 2022-11-19 | Outpatient (CLI) | payer MEDICARE, SELFPAY ==
--- NOTE | 2022-11-19 08:26 | CT_ITS ---
EXAM: CT CHEST, LUNG CANCER SCREENING WITHOUT INTRAVENOUS CONTRAST CLINICAL INDICATION: LUNG CA SCREENING, ACTIVE SMOKER TECHNIQUE: Helically acquired images were obtained of the chest without intravenous contrast using low dose (LDCT) lung cancer screening protocol. This CT exam was performed using one or more of the following dose reduction techniques: automated exposure control, adjustment of the mA and/or kV according to patient size, and/or use of iterative reconstruction technique. COMPARISON: No relevant prior studies available. FINDINGS: LUNGS AND PLEURAL SPACES: Unremarkable. No mass. No consolidation or edema. No pleural effusion or thickening. No pneumothorax. HEART: Unremarkable. Heart size is normal. No pericardial effusion. No significant coronary artery calcifications. MEDIASTINUM: Unremarkable. No mediastinal or hilar adenopathy. Esophagus is unremarkable. No hiatal hernia. THYROID: Unremarkable. No thyroid lesions. BONES/JOINTS: Unremarkable. No suspicious lytic or blastic abnormality. VASCULATURE: Unremarkable. Thoracic aorta is non-dilated. LYMPH NODES: Unremarkable. No enlarged lymph nodes. CT/Low Dose CT Lung Screening IMPRESSION: Normal chest CT. Lung-RADS score: 1 - Negative. Recommend continued annual screening with a low-dose CT (LDCT) in 12 months. Electronically Signed: Shay Abdullahi MD at 21:56 EDT ,
== END | disposition home or self-care (01) ==
LOC: CT 08:25
PROVIDERS: PCP Family Medicine; Referring Provider Family Medicine; Visit Provider Family Medicine
DX: Z12.2 Encounter for screening for malignant neoplasm of respiratory organs (principal); F17.210 Nicotine dependence, cigarettes, uncomplicated
CPT/HCPCS: 71271

== ENCOUNTER → 2022-11-23 | Outpatient (CLI) | payer MEDICARE, MEDICAID, SELFPAY ==
--- NOTE | 2022-11-27 14:38 | STRESSREP ---
Stress Test Report Date: 11/23/2022 Procedure: Pharmacologic stress nuclear imaging study Indications: Chest pain Consent: Per the patient Procedure: The patient underwent pharmacologic (Regadenoson) evaluation with a peak heart rate of 61 beats per minute (36%predicted maximal heart rate) and a peak blood pressure of 146/86 mmHg. The baseline ECG demonstrated sinus bradycardia. EKG during lexiscan infusion revealed no significant ischemic changes. EKG post infusion revealed no significant ischemic changes [There were no cardiac dysrhythmias pretest, during pharmacologic infusion, or recovery]. [There was no complaint of chest discomfort during pharmacologic infusion or recovery]. The examination was discontinued secondary to completion of protocol. Impression: 1. Lexiscan stress test test is negative for Lexiscan infusion induced EKG changes of ischemia. 2. Lexiscan stress test test is negative for Lexiscan infusion induced chest pain. 3. Results of the nuclear portion of the test is as below Myocardial perfusion imaging study: Technique: The patient was injected with 13.7 millicuries of technetium 99m Cardiolite and subsequently rest SPECT Cardiolite nuclear imaging was obtained in the horizontal long, vertical long, and short axis views. The patient underwent pharmacologic [Regadenoson 0.4mg] evaluation. Please see above for details. The patient was injected with 41.7 millicuries of technetium 99m Cardiolite and subsequently stress SPECT Cardiolite nuclear imaging was obtained in the horizontal long, vertical long, and short axis views. A gated Cardiolite study at peak stress was obtained. Interpretation: Rest and stress SPECT Cardiolite nuclear imaging status post realignment, normalization, and attenuation correction demonstrate overall normal myocardial radioisotope uptake. Gated images reveal no significant regional wall motion abnormalities. The reported LVEF is 62%. Impression: 1. There is no evidence of significant ischemia or infarction. 2. Estimated ejection fraction is 62%. This note was generated with [employer] software. It may contain incorrect words, spelling, and punctuation that were not noted in checking the note before signing.
== END | disposition home or self-care (01) ==
PROVIDERS: PCP Family Medicine; Referring Provider Family Medicine; Visit Provider Family Medicine
DX: R07.89 Other chest pain (principal); I25.10 Atherosclerotic heart disease of native coronary artery without angina pectoris
CPT/HCPCS: 78452; 93017; A9500; A4216; J2785